=== PATIENT | male | born 1935 | race Caucasian/White ===

== ENCOUNTER 2019-12-19 09:20 | Inpatient (IN) | payer MEDICARE ==
[2019-12-19] MEDS ORDERED: MELATONIN 3 MG TABLET PO PRN (14:49)
[2019-12-19] MEDS ORDERED: NALOXONE 0.4 MG/ML 1 ML VIAL IV PRN (14:49)
[2019-12-19] MEDS ORDERED: ACETAMINOPHEN TAB 325 MG TAB PO PRN (14:49)
[2019-12-19] MEDS ORDERED: ONDANSETRON 4 MG/2 ML VIAL IVP PRN (14:49)
--- NOTE | 2019-12-19 15:06 | P.HPIM ---
History of Present Illness H&P Date: 12/19/19 Chief Complaint: Shortness of breath This is a 84-year-old male with complex past medical history noted below who was transferred from [facility] for further evaluation of multifocal Covid 19 pneumonia. Patient presented to an outside hospital 3 days ago with worsening shortness of breath and cough. He was evaluated in the ER and was found to have a right lung pneumonia. He was admitted to the hospital and was treated with ceftriaxone and azithromycin. His overall condition remained stable. Yesterday, his Covid 19 PCR test returned positive. Patient was monitored that his symptoms started to progress and he was requiring 2 L of oxygen. Repeat chest x-ray today showed worsening multi lobar infiltrate and patient was given 125 mg of IV Solu-Medrol and he was transferred to our hospital for escalation of care and possible need of Remdesivir. Patient was seen by me in his room. He was very lethargic when I saw him. He was not able to provide any significant history. He was hardly arousable but was oriented to himself and to the place. He told me that he is not short of breath at this time but was more short of breath this morning. He denies any cough at the moment. No fevers or chills. I reviewed his lab work from outside hospital was mostly within acceptable/normal range. Patient had a normal troponin, normal BNP, normal CPK, and normal electrolytes/CBC. His creatinine was 1.5. 12-lead EKG showed atrial fibrillation with slow ventricular response. Review of Systems Review of system: 14 points review of systems were obtained and were negative except to what were mentioned in the HPI. Past Medical History Past Medical History: Atrial Fibrillation History of Any Multi-Drug Resistant Organisms: None Reported Past Anesthesia/Blood Transfusion Reactions: No Reported Reaction Smoking Status: Former smoker Medications and Allergies Allergies Allergy/AdvReac Type Severity Reaction Status Date / Time naproxen [From Aleve] Allergy Unknown Verified 12/19/19 14:22 Physical Exam Vitals: Vital Signs Temp Pulse Resp BP Pulse Ox 12/19/19 14:36 98.1 F 80 20 115/68 96 Intake and Output 12/18/19 12/19/19 12/19/19 22:59 06:59 14:59 Other: Weight 87.5 kg General: The patient is awake and alert, in no distress Eye: there is normal conjunctiva bilaterally. Neck: The neck is supple, there is no JVD. Cardiovascular: Normal S1-S2, no S3-S4, no murmurs. Respiratory: Lungs clear to auscultation bilaterally Gastrointestinal: Abdomen is soft, nontender Musculoskeletal: There is no pedal edema. Neurological:. Speech is normal. Skin: Skin is warm and dry Assessment and Plan Assessment: 1. Covid 19 superimposed on bacterial pneumonia, with x-ray showing multifocal pneumonia: Sarabjit 19 PCR positive at outside hospital on 12/17. Continue antibiotic with ceftriaxone and azithromycin. Patient received IV Solu-Medrol 125 mg IV at outside hospital. I would continue with Decadron 6 mg daily. Repeat chest x-ray in the morning. Consult pulmonology and ID for further evaluation. 2. Acute hypoxic respiratory failure secondary to #1, currently on 2 L of oxy gen. We will continue to monitor. Maintain O2 sats greater than 90% 3. Chronic atrial fibrillation with slow ventricular response noted on 12-lead EKG at outside hospital. I would continue desktop support associate. 4. Essential hypertension: Blood pressure within acceptable range. At home, Patient is maintained on lisinopril 40 mg daily, Norvasc 5 mg daily, and hydralazine 25 mg twice a day. I would continue with lisinopril 20 mg daily for now and continue to monitor closely 5. Hypothyroidism on levothyroxin 6. Stage IIIB chronic kidney disease 7. DVT prophylaxis with subcu Lovenox 8. CODE STATUS: DO NOT RESUSCITATE/DO NOT INTUBATE: Discussed with his daughter who is his DURABLE POWER OF RN CLINICAL REVIEW by nursing staff The patient is admitted with an anticipated greater than 2 midnight stay for evaluation of the medical problems noted above Discussed with: Patient and nursing staff Anticipated discharge date: To be determined based on clinical course Anticipated discharge place: home A total of 45 minutes was spent on the care of this complex patient more than 50% of the time was spent in counseling and care coordination.
[2019-12-19] MEDS ORDERED: dexAMETHasone 2 MG TAB PO SCH (15:30)
[2019-12-19] MEDS: SODIUM CHLORIDE 0.9% 1,000 ML IV SCH (15:37)
[2019-12-19] MEDS: ENOXAPARIN 40 MG/0.4 ML SYRINGE SQ SCH (15:37)
[2019-12-19] MEDS: dexAMETHasone 4 MG TAB PO SCH (15:58)
[2019-12-19] MEDS: ALBUTEROL HFA INHALER INHALATION SCH ×2 (16:34→19:48)
[2019-12-19] MEDS: lisinopriL 20 MG TAB PO SCH (21:57)
[2019-12-20] MEDS: LEVOTHYROXINE 125 MCG TAB PO SCH (05:36)
[2019-12-20 06:47] LABS: Basophils % (A) 0 %; Eosinophils % (A) 0 %; HCT 29.7 % (39.0-53.0); HGB 9.6 gm/dL (13.0-17.5); Lymphocytes # (A) 0.4 k/uL (1.0-4.8); Lymphocytes % (A) 11 %; MCH 29.7 pg (25.0-35.0); MCHC 32.2 g/dL (31.0-37.0); MCV 92.4 fL (80.0-100.0); Mean Platelet Volume 8.2; Monocytes # (A) 0.3 k/uL (0-1.0); Monocytes % (A) 8 %; Neutrophils # (A) 2.9 k/uL (1.3-7.7); Neutrophils % (A) 80 %; Platelet Count 254 k/uL (150-450); RBC 3.21 m/uL (4.30-5.90); WBC 3.6 k/uL (3.8-10.6)
--- NOTE | 2019-12-20 07:17 | XR ---
EXAMINATION TYPE: XR chest 1V DATE OF EXAM: 12/20/2019 HISTORY: Shortness of breath. COMPARISON: None. TECHNIQUE: Single view of the chest is submitted. FINDINGS: Demonstrated are scattered senescent parenchymal change. Patchy right perihilar and basilar infiltrate. Mild increased density left lower lobe. Correlate for pneumonia. The heart is stable. Hilar and mediastinal structures are within normal limits. Degenerative changes are seen of the dorsal spine. IMPRESSION: 1. Patchy right perihilar and basilar infiltrate. Mild increased density left lower lobe. Correlate for pneumonia.
[2019-12-20] MEDS: ALBUTEROL HFA INHALER INHALATION SCH ×4 (08:12→19:03)
[2019-12-20] MEDS: lisinopriL 20 MG TAB PO SCH (08:29)
[2019-12-20] MEDS: dexAMETHasone 4 MG TAB PO SCH (08:29)
[2019-12-20] MEDS: AZITHROMYCIN 250 MG TAB PO SCH (08:29)
[2019-12-20] MEDS: ENOXAPARIN 40 MG/0.4 ML SYRINGE SQ SCH (08:29)
[2019-12-20] MEDS: FUROSEMIDE 40 MG TAB PO SCH (08:29)
[2019-12-20 09:55] LABS: African American GFR (CKD) 52.4 (60.0-200.0); Albumin 3.2 g/dL (3.80-4.90); Albumin/Globulin Ratio 1.39 (1.60-3.17); Anion Gap 11.1 mmol/L (4.00-12.00); BUN/Creat Ratio 29.29 Ratio (12.00-20.00); Calcium 8.5 mg/dL (8.7-10.3); Carbon Dioxide 25.9 mmol/L (21.6-31.8); Globulin 2.3 g/dL (1.6-3.3); Magnesium 1.6 mg/dL (1.5-2.4); Non-African American GFR(CKD) 45.2 (60.0-200.0); Potassium 3.8 mmol/L (3.5-5.5); Total Bilirubin 0.2 mg/dL (0.2-1.2); Total Protein 5.5 g/dL (6.2-8.2)
[2019-12-20] MEDS: SODIUM CHLORIDE 0.9% 1,000 ML IV SCH (11:35)
--- NOTE | 2019-12-20 11:49 | P.CNPUL ---
History of Present Illness Reason for consult: pneumonia History of present illness: 84-year-old male patient transferred from [facility] after being diagnosed with a coronavirus Covid 19 multifocal pneumonia. The patient is currently hypoxic on 2 L of oxygen by nasal cannula with a pulse ox of 94%. The patient presented to the outside hospital approximately 3 days ago. His symptoms started approximately 5-7 days ago when he started feeling weak and tired and congested and cough and progressively he was having more shortness of breath. He was being given antibiotics with accommodation Rocephin and Zithromax. Chest x-ray was showing diffuse breath and pulmonary infiltrates. The patient had also become bronchus spastic and wheezy. He has no previous history of lung disease per notes of COPD or asthma. Hemodynamically stable. He is currently afebrile with a temperature of 97 7. The inflammatory markers are still pending for now. LFTs are within normal. No nausea. No vomiting. No diarrhea. White cell count is at 3.6. The patient has lymphopenia with a lymphocyte count of 0.4. No altered mentation. It is at 1.62 and the patient is on a Lovenox dose of 40 mg subcu and the patient was started on Decadron 6 mg by mouth daily. Review of Systems Constitutional: Reports weakness Eyes: denies as per HPI, denies blurred vision, denies bulging eye, denies decreased vision, denies diplopia, denies discharge, denies dry eye, denies irritation, denies itching, denies pain, denies photophobia, denies loss of peripheral vision, denies loss of vision, denies tunnel vision/blind spots Ears: deny: decreased hearing, ear discharge, earache, tinnitus Ears, nose, mouth and throat: Reports as per HPI Breasts: absent: as per HPI, gynecomastia Cardiovascular: Reports dyspnea on exertion Respiratory: Reports cough, Reports dyspnea Gastrointestinal: Reports as per HPI Genitourinary: Reports as per HPI Musculoskeletal: Reports as per HPI Musculoskeletal: absent: ankle pain, ankle stiffness, ankle swelling, as per HPI, elbow pain, elbow stiffness, elbow swelling, foot pain, foot stiffness, foot swelling, hand pain, hand stiffness, hand swelling, hip pain, hip stiffness, hip swelling, knee pain, knee stiffness, knee swelling, shoulder pain, shoulder stiffness, shoulder swelling, wrist pain, wrist stiffness, wrist swelling Integumentary: Reports as per HPI Neurological: Reports as per HPI, Reports weakness Psychiatric: Reports as per HPI Endocrine: Reports as per HPI, Reports fatigue Hematologic/Lymphatic: Reports as per HPI Allergic/Immunologic: Reports as per HPI Past Medical History Past Medical History: Atrial Fibrillation, Hypertension, Thyroid Disorder History of Any Multi-Drug Resistant Organisms: None Reported Past Anesthesia/Blood Transfusion Reactions: No Reported Reaction Smoking Status: Former smoker Medications and Allergies Home Medications Medication Instructions Recorded Confirmed Type Cetirizine HCl 10 mg PO DAILY 12/19/19 12/19/19 History Cholecalciferol [Vitamin D3 (25 1,000 unit PO DAILY 12/19/19 12/19/19 History Mcg = 1000 Iu)] Furosemide [Lasix] 40 mg PO DAILY 12/19/19 12/19/19 History Levothyroxine Sodium 125 mcg PO DAILY@0600 12/19/19 12/19/19 History Potassium Chloride 10 meq PO DAILY 12/19/19 12/19/19 History Simvastatin [Zocor] 20 mg PO HS 12/19/19 12/19/19 History Vit C/E/Zn/Coppr/Lutein/Zeaxan 1 cap PO DAILY 12/19/19 12/19/19 History [Preservision Areds 2 Softgel] amLODIPine [Norvasc] 5 mg PO DAILY 12/19/19 12/19/19 History hydrALAZINE HCL [Apresoline] 25 mg PO DAILY 12/19/19 12/19/19 History lisinopriL 40 mg PO DAILY 12/19/19 12/19/19 History metOLazone [Zaroxolyn] 2.5 mg PO DAILY 12/19/19 12/19/19 History Allergies Allergy/AdvReac Type Severity Reaction Status Date / Time naproxen [From Aleve] Allergy Unknown Verified 12/19/19 18:02 Physical Exam Vitals: Vital Signs Temp Pulse Resp BP BP Pulse Ox 12/20/19 08:28 97.7 F 69 20 132/61 94 L 12/20/19 02:46 98.0 F 76 18 126/71 93 L 12/19/19 19:25 97.8 F 73 16 140/63 96 12/19/19 14:36 98.1 F 80 20 115/68 96 Intake and Output 12/19/19 12/20/1920 22:59 06:59 14:59 Intake Total 100 500 200 Output Total 975 Balance 100 -475 200 Intake: Intake, IV Titration 100 500 Amount Sodium Chloride 0.9% 1, 100 500 000 ml @ 50 mls/hr IV . Q20H [facility] Rx#:[id number] Oral 200 Output: Urine 975 Gen. appearance the patient's breathing is nonlabored and is calm and comfortable Head exam was generally normal. There was no scleral icterus or corneal arcus. Mucous membranes were moist. Neck was supple and without jugular venous distension, thyromegaly, or carotid bruits. Carotids were easily palpable bilaterally. There was no adenopathy. Lungs sounds are diminished and the patient is scattered rhonchi scattered expiratory wheezes throughout the lung his bilaterally Heart sounds are irregular consistent with atrial fibrillation. Normal S1-S2. No significant murmurs appreciated. Abdominal exam revealed normal bowel sounds. The abdomen was soft, non-tender, and without masses, organomegaly, or appreciable enlargement of the abdominal aorta. Examination of the extremities revealed easily palpable radial, femoral and pe jose elias pulses. There was no cyanosis, clubbing or edema. Examination of the skin revealed no evidence of significant rashes, suspicious appearing nevi or other concerning lesions. Neurologically, the patient is awake and alert and the patient does not have any focal neurological deficit. Cranial nerves are essentially intact. Results - Laboratory Findings CBC and BMP: 12/20/19 06:07 12/20/19 06:07 Abnormal lab findings: Abnormal Labs 12/20/19 12/20/19 06:07 06:07 WBC 3.6 L RBC 3.21 L Hgb 9.6 L Hct 29.7 L Lymphocytes # 0.4 L BUN 41.0 H Est GFR (CKD-EPI)AfAm 52.4 L Est GFR (CKD-EPI)NonAf 45.2 L BUN/Creatinine Ratio 29.29 H Calcium 8.5 L AST 36 H Total Protein 5.5 L Albumin 3.20 L Albumin/Globulin Ratio 1.39 L - Diagnostic Findings Chest x-ray: image reviewed Assessment and Plan Plan: 1 acute coronavirus Covid 19 pneumonia 2 acute hypoxic respiratory failure secondary to above and the patient had diffuse breath and pulmonary infiltrates and the patient is currently on 2 L of oxygen by nasal cannula 3 increased bronchospasm wheezing secondary to above 4 chronic atrial fibrillation 5 hypertension 6 hypothyroidism 7 chronic stage III kidney disease Plan Check inflammatory markers including ferritin obvious CRP Lovenox 40 mg subcu the patient's d-dimer is 1.6 Decadron 6 mg by mouth daily Start Remdesevir 200 mg today and 100 mg for the next 4 days Albuterol HFA 2 puffs 4 times a day May stop the Rocephin and Zithromax Gentle hydration Resume all medication Monitor oxygenation Rapid precautions Monitor renal function We'll continue to follow
[2019-12-20] MEDS ORDERED: REMDESIVIR (EUA) 200 MG in SODIUM CHLORIDE 0.9% 250 ML IVPB ONE (12:00)
--- NOTE | 2019-12-20 12:30 | P.PN ---
Subjective Progress Note Date: 12/20/19 Principal diagnosis: COVID-19 Patient is doing a lot better today. His mentation is significantly improved. He still requiring 2 L of oxygen. He reported some shortness of breath. Objective - Vital Signs Vital signs: Vital Signs Temp 97.7 F 12/20/19 08:28 Pulse 69 12/20/19 08:28 Resp 20 12/20/19 08:28 BP 132/61 12/20/19 08:28 Pulse Ox 94 L 12/20/19 08:28 Intake & Output 12/19/19 12/20/19 12/20/19 18:59 06:59 18:59 Intake Total 600 200 Output Total 975 Balance -375 200 Weight 87.5 kg Intake: Intake, IV Titration 600 Amount Sodium Chloride 0.9% 1, 600 000 ml @ 50 mls/hr IV . Q20H [facility] Rx#:[id number] Oral 200 Output: Urine 975 - Exam General: The patient is awake and alert, in no distress Eye: there is normal conjunctiva bilaterally. Neck: The neck is supple, there is no JVD. Cardiovascular: Normal S1-S2, no S3-S4, no murmurs. Respiratory: Lungs with diffuse rhonchi Gastrointestinal: Abdomen is soft, nontender Musculoskeletal: There is no pedal edema. Neurological:. Speech is normal. Skin: Skin is warm and dry - Labs CBC & Chem 7: 12/20/19 06:07 12/20/19 06:07 Labs: Abnormal Lab Results - Last 24 Hours (Table) 12/20/19 12/20/19 12/20/19 Range/Units 06:07 06:07 10:22 WBC 3.6 L (3.8-10.6) k/uL RBC 3.21 L (4.30-5.90) m/uL Hgb 9.6 L (13.0-17.5) gm/dL Hct 29.7 L (39.0-53.0) % Lymphocytes # 0.4 L (1.0-4.8) k/uL D-Dimer (<0.60) mg/L FEU BUN 41.0 H (9.0-27.0) mg/dL Est GFR (CKD-EPI)AfAm 52.4 L (60.0-200.0) Est GFR (CKD-EPI)NonAf 45.2 L (60.0-200.0) BUN/Creatinine Ratio 29.29 H (12.00-20.00) Ratio Calcium 8.5 L (8.7-10.3) mg/dL AST 36 H (14-35) U/L C-Reactive Protein 82.0 H (<10.0) mg/L Total Protein 5.5 L (6.2-8.2) g/dL Albumin 3.20 L (3.80-4.90) g/dL Albumin/Globulin Ratio 1.39 L (1.60-3.17) g/dL 12/20/19 Range/Units 10:22 WBC (3.8-10.6) k/uL RBC (4.30-5.90) m/uL Hgb (13.0-17.5) gm/dL Hct (39.0-53.0) % Lymphocytes # (1.0-4.8) k/uL D-Dimer 1.62 H (<0.60) mg/L FEU BUN (9.0-27.0) mg/dL Est GFR (CKD-EPI)AfAm (60.0-200.0) Est GFR (CKD-EPI)NonAf (60.0-200.0) BUN/Creatinine Ratio (12.00-20.00) Ratio Calcium (8.7-10.3) mg/dL AST (14-35) U/L C-Reactive Protein (<10.0) mg/L Total Protein (6.2-8.2) g/dL Albumin (3.80-4.90) g/dL Albumin/Globulin Ratio (1.60-3.17) g/dL Assessment and Plan Assessment: This is a 84-year-old male who was transferred to our hospital from [place] for further evaluation of his medical problems noted below. 1. Covid 19 superimposed on bacterial pneumonia, with x-ray showing multifocal pneumonia: Sarabjit 19 PCR positive at outside hospital on 12/17. Continue antibiotic with ceftriaxone and azithromycin. Tomorrow is day 5 and would discontinue antibiotic. Continue with Decadron 6 mg daily. Repeat chest x-ray showed stable patchy infiltrate bilaterally. Seen and evaluated by pulmonology, started on her visit here today 03/15. 2. Acute hypoxic respiratory failure secondary to #1, currently on 2 L of oxygen. We will continue to monitor. Maintain O2 sats greater than 90% 3. Chronic atrial fibrillation with slow ventricular response noted on 12-lead EKG at outside hospital. I would continue playground monitor. Patient is not maintained on anticoagulation as an outpatient 4. Essential hypertension: Blood pressure within acceptable range. At home, Patient is maintained on lisinopril 40 mg daily, Norvasc 5 mg daily, and h ydralazine 25 mg twice a day. I would continue with lisinopril 20 mg daily for now and continue to monitor closely 5. Hypothyroidism on levothyroxin 6. Stage IIIB chronic kidney disease 7. DVT prophylaxis with subcu Lovenox 8. CODE STATUS: DO NOT RESUSCITATE/DO NOT INTUBATE: Discussed with his daughter who is his DURABLE POWER OF TALCER by nursing staff T
[2019-12-20 17:06] LABS: Ferritin 314.2 ng/mL (22.0-322.0)
--- NOTE | 2019-12-20 22:25 | P.CONS ---
History of Present Illness - Reason for Consult Consult date: 12/20/19 pneumonia Requesting physician: Karthikeyan Townsend - Chief Complaint Shortness of breath and cough x few days - History of Present Illness Patient is 84 year old male presented to the [facility] a few days ago for increasing shortness of breath and cough in this patient who was diagnosed with pneumonia the patient was treated with Rocephin and Zithromax subsequently the covid 19 PCR came back positive for apparently the patient did have a chest x-ray we did shows worsening Saturday-lobar infiltrate patient was subsequently transferred to [facility] for further management of his Covid 19 pneumonia on presentation this facility the patient has been afebrile patient was hypoxic on supplemental oxygen he did have a normal white count with lymphopenia elevated d-dimer and CRP, chest x-ray with patchy right perihilar and basilar infiltrate patient has been evaluated by pulmonary service the patient was started on Remdisivir infectious disease was consulted for further management at the time of evaluation the patient's any more awake and alert in his hospital she did have supplemental oxygen on the patient did have a cough which is [id number] intensity B Cabrini sputum denies having any chest pain no nausea no vomiting no abdominal pain no diarrhea Review of Systems Positive point has been mentioned in the HPI rest of the systems are negative Past Medical History Past Medical History: Atrial Fibrillation, Hypertension, Thyroid Disorder History of Any Multi-Drug Resistant Organisms: None Reported Past Anesthesia/Blood Transfusion Reactions: No Reported Reaction Smoking Status: Former smoker Medications and Allergies Home Medications Medication Instructions Recorded Confirmed Type Cetirizine HCl 10 mg PO DAILY 12/19/19 12/19/19 History Cholecalciferol [Vitamin D3 (25 1,000 unit PO DAILY 12/19/19 12/19/19 History Mcg = 1000 Iu)] Furosemide [Lasix] 40 mg PO DAILY 12/19/19 12/19/19 History Levothyroxine Sodium 125 mcg PO DAILY@0600 12/19/19 12/19/19 History Potassium Chloride 10 meq PO DAILY 12/19/19 12/19/19 History Simvastatin [Zocor] 20 mg PO HS 12/19/19 12/19/19 History Vit C/E/Zn/Coppr/Lutein/Zeaxan 1 cap PO DAILY 12/19/19 12/19/19 History [Preservision Areds 2 Softgel] amLODIPine [Norvasc] 5 mg PO DAILY 12/19/19 12/19/19 History hydrALAZINE HCL [Apresoline] 25 mg PO DAILY 12/19/19 12/19/19 History lisinopriL 40 mg PO DAILY 12/19/19 12/19/19 History metOLazone [Zaroxolyn] 2.5 mg PO DAILY 12/19/19 12/19/19 History Allergies Allergy/AdvReac Type Severity Reaction Status Date / Time naproxen [From Aleve] Allergy Unknown Verified 12/19/19 18:02 Physical Exam Vitals: Vital Signs Temp Pulse Resp BP BP Pulse Ox 12/20/19 08:28 97.7 F 69 20 132/61 94 L 12/20/19 02:46 98.0 F 76 18 126/71 93 L 12/19/19 19:25 97.8 F 73 16 140/63 96 12/19/19 14:36 98.1 F 80 20 115/68 96 Intake and Output 12/19/19 12/20/19 12/20/19 22:59 06:59 14:59 Intake Total 100 500 200 Output Total 975 Balance 100 -475 200 Intake: Intake, IV Titration 100 500 Amount Sodium Chloride 0.9% 1, 100 500 000 ml @ 50 mls/hr IV . Q20H [facility] Rx#:[id number] Oral 200 Output: Urine 975 GENERAL DESCRIPTION: an elderly male lying in bed, no distress. No tachypnea or accessory muscle of respiration use. HEENT: Shows Pallor , no scleral icterus. Oral mucous membrane is dry. No pharyngeal erythema or thrush NECK: Trachea central, no thyromegaly. LUNGS: Unlabored breathing. course breath sounds at the Base. No wheeze or crackle. HEART: S1, S2, regular rate and rhythm. No loud murmur ABDOMEN: Soft, no tenderness , guarding or rigidity, no organomegaly EXTREMITIES: No edema of feet. SKIN: No rash, no masses palpable. NEUROLOGICAL: The patient is awake, alert, oriented x2, mood and affect normal. Results CBC & Chem 7: 12/20/19 06:07 12/20/19 06:07 Labs: Abnormal Lab Results - Last 24 Hours (Table) 12/20/19 12/20/19 12/20/19 Range/Units 06:07 06:07 10:22 WBC 3.6 L (3.8-10.6) k/uL RBC 3.21 L (4.30-5.90) m/uL Hgb 9.6 L (13.0-17.5) gm/dL Hct 29.7 L (39.0-53.0) % Lymphocytes # 0.4 L (1.0-4.8) k/uL D-Dimer (<0.60) mg/L FEU BUN 41.0 H (9.0-27.0) mg/dL Est GFR (CKD-EPI)AfAm 52.4 L (60.0-200.0) Est GFR (CKD-EPI)NonAf 45.2 L (60.0-200.0) BUN/Creatinine Ratio 29.29 H (12.00-20.00) Ratio Calcium 8.5 L (8.7-10.3) mg/dL AST 36 H (14-35) U/L C-Reactive Protein 82.0 H (<10.0) mg/L Total Protein 5.5 L (6.2-8.2) g/dL Albumin 3.20 L (3.80-4.90) g/dL Albumin/Globulin Ratio 1.39 L (1.60-3.17) g/dL 12/20/19 Range/Units 10:22 WBC (3.8-10.6) k/uL RBC (4.30-5.90) m/uL Hgb (13.0-17.5) gm/dL Hct (39.0-53.0) % Lymphocytes # (1.0-4.8) k/uL D-Dimer 1.62 H (<0.60) mg/L FEU BUN (9.0-27.0) mg/dL Est GFR (CKD-EPI)AfAm (60.0-200.0) Est GFR (CKD-EPI)NonAf (60.0-200.0) BUN/Creatinine Ratio (12.00-20.00) Ratio Calcium (8.7-10.3) mg/dL AST (14-35) U/L C-Reactive Protein (<10.0) mg/L Total Protein (6.2-8.2) g/dL Albumin (3.80-4.90) g/dL Albumin/Globulin Ratio (1.60-3.17) g/dL Assessment and Plan Assessment: 1- patient presented to hospital with increasing shortness of breath and cough in this patient has been diagnosed with multifocal pneumonia this patient did have a evidence of lymphopenia elevated d-dimer in his CRP and multifocal infiltrate on the chest x-ray likely representing acute viral pneumonia secondary to covid19 clinical suspicion of underlying bacterial infection (1) Pneumonia due to COVID-19 virus Current Visit: Yes Status: Acute Code(s): U07.1 - COVID-19; J12.89 - OTHER VIRAL PNEUMONIA SNOMED Code(s): [id number] Plan: 1- patient will be treated with Remdisivir , Lovenox , dexamethasone and zinc 2- we will check a pro-calcitonin if normal antibiotic should be discontinued 3- droplet isolation and respiratory support We will follow on clinical condition and cultures to further adjust medication if needed Thank you for this consultation will follow this patient with you
[2019-12-21] MEDS: LEVOTHYROXINE 125 MCG TAB PO SCH (06:11)
[2019-12-21 06:15] LABS: Basophils % (A) 0 %; Eosinophils % (A) 0 %; HCT 31.4 % (39.0-53.0); HGB 10.1 gm/dL (13.0-17.5); Lymphocytes # (A) 0.3 k/uL (1.0-4.8); Lymphocytes % (A) 4 %; MCH 30.2 pg (25.0-35.0); MCHC 32.1 g/dL (31.0-37.0); MCV 94.2 fL (80.0-100.0); Mean Platelet Volume 8.1; Monocytes # (A) 0.5 k/uL (0-1.0); Monocytes % (A) 5 %; Neutrophils # (A) 7.9 k/uL (1.3-7.7); Neutrophils % (A) 90 %; Platelet Count 286 k/uL (150-450); RBC 3.34 m/uL (4.30-5.90); RDW 14.7 % (11.5-15.5); WBC 8.8 k/uL (3.8-10.6)
[2019-12-21] MEDS: SODIUM CHLORIDE 0.9% 1,000 ML IV SCH (07:39)
[2019-12-21] MEDS: FUROSEMIDE 40 MG TAB PO SCH (07:40)
[2019-12-21] MEDS: AZITHROMYCIN 250 MG TAB PO SCH (07:40)
[2019-12-21] MEDS: dexAMETHasone 4 MG TAB PO SCH (07:40)
[2019-12-21] MEDS: ENOXAPARIN 40 MG/0.4 ML SYRINGE SQ SCH (07:40)
[2019-12-21] MEDS: lisinopriL 20 MG TAB PO SCH (07:40)
[2019-12-21] MEDS: ALBUTEROL HFA INHALER INHALATION SCH ×4 (07:59→21:12)
[2019-12-21 10:55] LABS: African American GFR (CKD) 48.2 (60.0-200.0); Albumin 3.4 g/dL (3.80-4.90); Albumin/Globulin Ratio 1.48 (1.60-3.17); Anion Gap 11.2 mmol/L (4.00-12.00); BUN/Creat Ratio 35.33 Ratio (12.00-20.00); C Reactive Protein 5.5 mg/dL (0.0-0.8); Calcium 8.5 mg/dL (8.7-10.3); Carbon Dioxide 22.8 mmol/L (21.6-31.8); Globulin 2.3 g/dL (1.6-3.3); Non-African American GFR(CKD) 41.6 (60.0-200.0); Potassium 3.9 mmol/L (3.5-5.5); Total Bilirubin 0.2 mg/dL (0.2-1.2); Total Protein 5.7 g/dL (6.2-8.2)
[2019-12-21 12:52] LABS: C Reactive Protein 55.6 mg/L (<10.0)
[2019-12-21] MEDS: REMDESIVIR (EUA) 100 MG in SODIUM CHLORIDE 0.9% 250 ML IVPB SCH (13:06)
--- NOTE | 2019-12-21 13:27 | P.PN ---
Subjective Progress Note Date: 12/21/19 Principal diagnosis: COVID 19 pneumonitis 84-year-old male patient transferred from [facility] after being diagnosed with a coronavirus Covid 19 multifocal pneumonia. The patient is currently hypoxic on 2 L of oxygen by nasal cannula with a pulse ox of 94%. The patient presented to the outside hospital approximately 3 days ago. His symptoms started approximately 5-7 days ago when he started feeling weak and tired and congested and cough and progressively he was having more shortness of breath. He was being given antibiotics with accommodation Rocephin and Zi thromax. Chest x-ray was showing diffuse breath and pulmonary infiltrates. The patient had also become bronchus spastic and wheezy. He has no previous history of lung disease per notes of COPD or asthma. Hemodynamically stable. He is currently afebrile with a temperature of 97 7. The inflammatory markers are still pending for now. LFTs are within normal. No nausea. No vomiting. No diarrhea. White cell count is at 3.6. The patient has lymphopenia with a lymphocyte count of 0.4. No altered mentation. It is at 1.62 and the patient is on a Lovenox dose of 40 mg subcu and the patient was started on Decadron 6 mg by mouth daily. On 12/21/2019 patient seen in follow-up on a general medical surgical floor. He is resting in bed, he looks weak and worn out, he is on 2 L of oxygen with a pulse ox of 93%, he does have a loose nonproductive cough, sounds wheezy and today's exam, he continues on oral Decadron, azithromycin and Rocephin, and today's is second dose of Remdesivir. He is on daily dose of oral Lasix, he is on prophylactic dose of Lovenox. Denies any nausea or vomiting, today d-dimer is 1.18. CRP is 55.6, and LDH is 612. Objective - Vital Signs Vital signs: Vital Signs Temp 99.0 F 12/21/19 07:00 Pulse 77 12/21/19 07:00 Resp 18 12/21/19 07:00 BP 149/71 12/21/19 07:00 Pulse Ox 93 L 12/21/19 07:00 Intake & Output 12/20/19 12/21/19 12/21/19 18:59 06:59 18:59 Intake Total 600 Output Total 1 1100 Balance 599 -1100 Intake: IV 400 cefTRIAXone 1 gm In 400 Sodium Chloride 0.9% 50 ml @ 100 mls/hr IVPB Q24HR [facility] Rx#:[id number] Oral 200 Output: Urine 1100 Stool 1 Other: Voiding Method Incontinent # Bowel Movements 3 - Exam GENERAL EXAM: Alert, very pleasant, 84-year-old white male, on 2 L of oxygen and the pulse ox of 93-95% comfortable in no apparent distress. HEAD: Normocephalic/atraumatic. EYES: Normal reaction of pupils, equal size. Conjunctiva pink, sclera white. NOSE: Clear with pink turbinates. THROAT: No erythema or exudates. NECK: No masses, no JVD, no thyroid enlargement, no adenopathy. CHEST: No chest wall deformity. Symmetrical expansion. LUNGS: Equal air entry with no crackles, wheeze, rhonchi or dullness. CVS: Regular rate and rhythm, normal S1 and S2, no gallops, no murmurs, no rubs ABDOMEN: Soft, nontender. No hepatosplenomegaly, normal bowel sounds, no guarding or rigidity. EXTREMITIES: No clubbing, no edema, no cyanosis, 2+ pulses and upper and lower extremities. MUSCULOSKELETAL: Muscle strength and tone normal. SPINE: No scoliosis or deformity SKIN: No rashes CENTRAL NERVOUS SYSTEM: Alert and oriented -3. No focal deficits, tone is normal in all 4 extremities. PSYCHIATRIC: Alert and oriented -3. Appropriate affect. Intact judgment and insight. - Labs CBC & Chem 7: 12/21/19 05:43 12/21/19 05:43 Labs: Abnormal Lab Results - Last 24 Hours (Table) 12/21/19 12/21/19 12/21/19 Range/Units 05:43 05:43 05:43 RBC 3.34 L (4.30-5.90) m/uL Hgb 10.1 L (13.0-17.5) gm/dL Hct 31.4 L (39.0-53.0) % Neutrophils # 7.9 H (1.3-7.7) k/uL Lymphocytes # 0.3 L (1.0-4.8) k/uL D-Dimer (<0.60) mg/L FEU BUN 53.0 H (9.0-27.0) mg/dL Est GFR (CKD-EPI)AfAm 48.2 L (60.0-200.0) Est GFR (CKD-EPI)NonAf 41.6 L (60.0-200.0) BUN/Creatinine Ratio 35.33 H (12.00-20.00) Ratio Calcium 8.5 L (8.7-10.3) mg/dL AST 42 H (14-35) U/L C-Reactive Protein 5.5 H (0.0-0.8) mg/dL Total Protein 5.7 L (6.2-8.2) g/dL Albumin 3.40 L (3.80-4.90) g/dL Albumin/Globulin Ratio 1.48 L (1.60-3.17) g/dL Procalcitonin 0.13 H (0.02-0.09) ng/mL 12/21/19 12/21/19 Range/Units 12:19 12:19 RBC (4.30-5.90) m/uL Hgb (13.0-17.5) gm/dL Hct (39.0-53.0) % Neutrophils # (1.3-7.7) k/uL Lymphocytes # (1.0-4.8) k/uL D-Dimer 1.18 H (<0.60) mg/L FEU BUN (9.0-27.0) mg/dL Est GFR (CKD-EPI)AfAm (60.0-200.0) Est GFR (CKD-EPI)NonAf (60.0-200.0) BUN/Creatinine Ratio (12.00-20.00) Ratio Calcium (8.7-10.3) mg/dL AST (14-35) U/L C-Reactive Protein 55.6 H (0.0-0.8) mg/dL Total Protein (6.2-8.2) g/dL Albumin (3.80-4.90) g/dL Albumin/Globulin Ratio (1.60-3.17) g/dL Procalcitonin (0.02-0.09) ng/mL Assessment and Plan Plan: Assessment: 1 acute coronavirus Covid 19 pneumonia, initiated on Remdesivir on 12/20/2019 2 acute hypoxic respiratory failure secondary to above and the patient had diffuse breath and pulmonary infiltrates and the patient is currently on 2 L of oxygen by nasal cannula 3 increased bronchospasm wheezing secondary to above 4 chronic atrial fibrillation 5 hypertension 6 hypothyroidism 7 chronic stage III kidney disease Plan: Continue with current medical treatment, continue with oral Decadron, Lovenox, today is his second day of Remdesivir, continue gentle hydration, will continue following inflammatory markers. Continue monitoring dyspnea and oxygenation. I performed a history & physical examination of the patient and discussed their management with my nurse practitioner, Sunshine Freitas. I reviewed the nurse practitioner's note and agree with the documented findings and plan of care. Lung sounds are positive for diffuse wheezes. The findings and the impression was discussed with the patient. I attest to the documentation by the nurse practitioner. Time with Patient: Less than 30
--- NOTE | 2019-12-21 17:08 | P.PN ---
Subjective Progress Note Date: 12/21/19 Principal diagnosis: COVID-19 Patient is doing well today. He is still on oxygen. He said that his shortness of breath is not completely resolved. He appeared very weak Objective - Vital Signs Vital signs: Vital Signs Temp 98.2 F 12/21/19 14:28 Pulse 94 12/21/19 14:28 Resp 18 12/21/19 14:28 BP 136/54 12/21/19 14:28 Pulse Ox 91 L 12/21/19 14:28 Intake & Output 12/20/19 12/21/19 12/21/19 18:59 06:59 18:59 Intake Total 600 Output Total 1 1100 Balance 599 -1100 Intake: IV 400 cefTRIAXone 1 gm In 400 Sodium Chloride 0.9% 50 ml @ 100 mls/hr IVPB Q24HR [facility] Rx#:[id number] Oral 200 Output: Urine 1100 Stool 1 Other: Voiding Method Incontinent # Bowel Movements 3 3 - Exam General: The patient is awake and alert, in no distress Eye: there is normal conjunctiva bilaterally. Neck: The neck is supple, there is no JVD. Cardiovascular: Normal S1-S2, no S3-S4, no murmurs. Respiratory: Lungs with diffuse rhonchi and wheezing Gastrointestinal: Abdomen is soft, nontender Musculoskeletal: There is no pedal edema. Neurological:. Speech is normal. Skin: Skin is warm and dry - Labs CBC & Chem 7: 12/21/19 05:43 12/21/19 05:43 Labs: Abnormal Lab Results - Last 24 Hours (Table) 12/21/19 12/21/19 12/21/19 Range/Units 05:43 05:43 05:43 RBC 3.34 L (4.30-5.90) m/uL Hgb 10.1 L (13.0-17.5) gm/dL Hct 31.4 L (39.0-53.0) % Neutrophils # 7.9 H (1.3-7.7) k/uL Lymphocytes # 0.3 L (1.0-4.8) k/uL D-Dimer (<0.60) mg/L FEU BUN 53.0 H (9.0-27.0) mg/dL Est GFR (CKD-EPI)AfAm 48.2 L (60.0-200.0) Est GFR (CKD-EPI)NonAf 41.6 L (60.0-200.0) BUN/Creatinine Ratio 35.33 H (12.00-20.00) Ratio Calcium 8.5 L (8.7-10.3) mg/dL AST 42 H (14-35) U/L C-Reactive Protein 5.5 H (0.0-0.8) mg/dL Total Protein 5.7 L (6.2-8.2) g/dL Albumin 3.40 L (3.80-4.90) g/dL Albumin/Globulin Ratio 1.48 L (1.60-3.17) g/dL Procalcitonin 0.13 H (0.02-0.09) ng/mL 12/21/19 12/21/19 Range/Units 12:19 12:19 RBC (4.30-5.90) m/uL Hgb (13.0-17.5) gm/dL Hct (39.0-53.0) % Neutrophils # (1.3-7.7) k/uL Lymphocytes # (1.0-4.8) k/uL D-Dimer 1.18 H (<0.60) mg/L FEU BUN (9.0-27.0) mg/dL Est GFR (CKD-EPI)AfAm (60.0-200.0) Est GFR (CKD-EPI)NonAf (60.0-200.0) BUN/Creatinine Ratio (12.00-20.00) Ratio Calcium (8.7-10.3) mg/dL AST (14-35) U/L C-Reactive Protein 55.6 H (0.0-0.8) mg/dL Total Protein (6.2-8.2) g/dL Albumin (3.80-4.90) g/dL Albumin/Globulin Ratio (1.60-3.17) g/dL Procalcitonin (0.02-0.09) ng/mL Assessment and Plan Assessment: This is a 84-year-old male who was transferred to our hospital from [place] for further evaluation of his medical problems noted below. 1. Covid 19 superimposed on bacterial pneumonia, with x-ray showing multifocal pneumonia: Sarabjit 19 PCR positive at outside hospital on 12/17. Continue antibiotic with ceftriaxone and azithromycin day #5. Continue with Decadron 6 mg daily. Repeat chest x-ray showed stable patchy infiltrate bilaterally. Seen and evaluated by pulmonology, started on Remdesivir day 2/5. 2. Acute hypoxic respiratory failure secondary to #1, currently on 2 L of oxygen. We will continue to monitor. Maintain O2 sats greater than 90% 3. Chronic atrial fibrillation with slow ventricular response noted on 12-lead EKG at outside hospital. I would continue manager monitoring. Patient is not maintained on anticoagulation as an outpatient 4. Essential hypertension: Blood pressure within acceptable range. At home, Patient is maintained on lisinopril 40 mg daily, Norvasc 5 mg daily, and hydralazine 25 mg twice a day. I would continue with lisinopril 20 mg daily for now and continue to monitor closely. We will probably need to adjust home regimen upon discharge 5. Hypothyroidism on levothyroxin 6. Stage IIIB chronic kidney disease 7. DVT prophylaxis with subcu Lovenox 8. CODE STATUS: DO NOT RESUSCITATE/DO NOT INTUBATE: Discussed with his daughter who is his DURABLE POWER OF DIRECTOR FINANCIAL PLANNING by nursing staff 9. Physical debility, PT/OT consulted. Plan to [facility] for subacute rehab on discharge. Discussed with case management.
--- NOTE | 2019-12-22 02:14 | PN ---
PROGRESS NOTE DATE OF SERVICE: 12/21/2019 REASON FOR FOLLOWUP: Acute COVID-19 pneumonia. INTERVAL HISTORY: The patient is currently afebrile. The patient is breathing slightly comfortably. Continues to have a cough, occasional sputum. No chest pain. No abdominal pain or diarrhea. PHYSICAL EXAMINATION: Blood pressure 135/70 with a pulse of 61, temperature 96.7. He is 94% 2 L nasal cannula. General description is an elderly male lying in bed in no distress. RESPIRATORY SYSTEM: Unlabored breathing, some coarse breath sounds at bases. No wheeze. HEART: S1, S2. Regular rate and rhythm. ABDOMEN: Soft, no tenderness. LABS: Hemoglobin is 10.1, white count 8.8. BUN of 53, creatinine 1.5. CRP is 55.6. DIAGNOSTIC IMPRESSION AND PLAN: 1. Patient with acute COVID-19 pneumonia for which the patient is currently covered with the remdesivir, Lovenox, and dexamethasone to continue. 2. Elevated procalcitonin and concern for possible bacterial pneumonia covered with Rocephin and Zithromax to be continued and will monitor clinical course closely. MMODL / IJN: [id number] /
[2019-12-22] MEDS: LEVOTHYROXINE 125 MCG TAB PO SCH (05:32)
[2019-12-22 06:29] LABS: Basophils % (A) 0 %; Eosinophils % (A) 0 %; HCT 31.2 % (39.0-53.0); HGB 10.3 gm/dL (13.0-17.5); Lymphocytes # (A) 0.4 k/uL (1.0-4.8); Lymphocytes % (A) 10 %; MCH 31.1 pg (25.0-35.0); MCHC 33.1 g/dL (31.0-37.0); MCV 94.1 fL (80.0-100.0); Mean Platelet Volume 8.1; Monocytes # (A) 0.4 k/uL (0-1.0); Monocytes % (A) 9 %; Neutrophils # (A) 3.3 k/uL (1.3-7.7); Neutrophils % (A) 78 %; Platelet Count 268 k/uL (150-450); RBC 3.32 m/uL (4.30-5.90); RDW 14.6 % (11.5-15.5); WBC 4.2 k/uL (3.8-10.6)
[2019-12-22] MEDS: ENOXAPARIN 40 MG/0.4 ML SYRINGE SQ SCH (08:20)
[2019-12-22] MEDS: dexAMETHasone 4 MG TAB PO SCH (08:21)
[2019-12-22] MEDS: AZITHROMYCIN 250 MG TAB PO SCH (08:21)
[2019-12-22] MEDS: lisinopriL 20 MG TAB PO SCH (08:21)
[2019-12-22] MEDS: FUROSEMIDE 40 MG TAB PO SCH (08:21)
[2019-12-22] MEDS: ALBUTEROL HFA INHALER INHALATION SCH ×4 (09:00→20:11)
[2019-12-22 09:25] LABS: African American GFR (CKD) 52.4 (60.0-200.0); Anion Gap 10.5 mmol/L (4.00-12.00); BUN/Creat Ratio 39.29 Ratio (12.00-20.00); C Reactive Protein 4.7 mg/dL (0.0-0.8); Calcium 8.5 mg/dL (8.7-10.3); Carbon Dioxide 24.5 mmol/L (21.6-31.8); Non-African American GFR(CKD) 45.2 (60.0-200.0)
[2019-12-22] MEDS: REMDESIVIR (EUA) 100 MG in SODIUM CHLORIDE 0.9% 250 ML IVPB SCH (12:11)
--- NOTE | 2019-12-22 12:31 | P.PN ---
Subjective Progress Note Date: 12/22/19 Principal diagnosis: COVID 19 pneumonitis 84-year-old male patient transferred from [facility] after being diagnosed with a coronavirus Covid 19 multifocal pneumonia. The patient is currently hypoxic on 2 L of oxygen by nasal cannula with a pulse ox of 94%. The patient presented to the outside hospital approximately 3 days ago. His symptoms started approximately 5-7 days ago when he started feeling weak and tired and congested and cough and progressively he was having more shortness of breath. He was being given antibiotics with accommodation Rocephin and Zi thromax. Chest x-ray was showing diffuse breath and pulmonary infiltrates. The patient had also become bronchus spastic and wheezy. He has no previous history of lung disease per notes of COPD or asthma. Hemodynamically stable. He is currently afebrile with a temperature of 97 7. The inflammatory markers are still pending for now. LFTs are within normal. No nausea. No vomiting. No diarrhea. White cell count is at 3.6. The patient has lymphopenia with a lymphocyte count of 0.4. No altered mentation. It is at 1.62 and the patient is on a Lovenox dose of 40 mg subcu and the patient was started on Decadron 6 mg by mouth daily. On 12/21/2019 patient seen in follow-up on a general medical surgical floor. He is resting in bed, he looks weak and worn out, he is on 2 L of oxygen with a pulse ox of 93%, he does have a loose nonproductive cough, sounds wheezy and today's exam, he continues on oral Decadron, azithromycin and Rocephin, and today's is second dose of Remdesivir. He is on daily dose of oral Lasix, he is on prophylactic dose of Lovenox. Denies any nausea or vomiting, today d-dimer is 1.18. CRP is 55.6, and LDH is 612. On 12/22/2019 patient seen in follow-up on the general medical surgical floor. He is awake and alert, appears to be in no acute distress, he is resting in bed,he is currently afebrile, his breathing has improved, breathing comfortably, occasional cough, occasional sputum production, no compressive chest pain, no nausea vomiting or diarrhea. Patient continues on Remdesivir, oral Decadron, Lovenox, and he is on a combination of Rocephin and azithromycin. Objective - Vital Signs Vital signs: Vital Signs Temp 98.2 F 12/22/19 07:00 Pulse 62 12/22/19 07:00 Resp 18 12/22/19 07:00 BP 111/49 12/22/19 07:00 Pulse Ox 94 L 12/22/19 07:00 Intake & Output 12/21/19 12/22/19 12/22/19 18:59 06:59 18:59 Intake Total 350 Output Total 1001 Balance -651 Intake: Intake, IV Titration 150 Amount Sodium Chloride 0.9% 1, 150 000 ml @ 50 mls/hr IV . Q20H [facility] Rx#:[id number] Oral 200 Output: Urine 1000 Stool 1 Other: Voiding Method Incontinent Incontinent # Bowel Movements 3 1 - Exam GENERAL EXAM: Alert, very pleasant, 84-year-old white male, on 2 L of oxygen and the pulse ox of 93-95% comfortable in no apparent distress. HEAD: Normocephalic/atraumatic. EYES: Normal reaction of pupils, equal size. Conjunctiva pink, sclera white. NOSE: Clear with pink turbinates. THROAT: No erythema or exudates. NECK: No masses, no JVD, no thyroid enlargement, no adenopathy. CHEST: No chest wall deformity. Symmetrical expansion. LUNGS: Equal air entry with no crackles, wheeze, rhonchi or dullness. CVS: Regular rate and rhythm, normal S1 and S2, no gallops, no murmurs, no rubs ABDOMEN: Soft, nontender. No hepatosplenomegaly, normal bowel sounds, no guarding or rigidity. EXTREMITIES: No clubbing, no edema, no cyanosis, 2+ pulses and upper and lower extremities. MUSCULOSKELETAL: Muscle strength and tone normal. SPINE: No scoliosis or deformity SKIN: No rashes CENTRAL NERVOUS SYSTEM: Alert and oriented -3. No focal deficits, tone is normal in all 4 extremities. PSYCHIATRIC: Alert and oriented -3. Appropriate affect. Intact judgment and insight. - Labs CBC & Chem 7: 12/22/19 05:55 12/22/19 05:55 Labs: Abnormal Lab Results - Last 24 Hours (Table) 12/21/19 12/21/19 12/22/19 Range/Units 12:19 12:19 05:55 RBC 3.32 L (4.30-5.90) m/uL Hgb 10.3 L (13.0-17.5) gm/dL Hct 31.2 L (39.0-53.0) % Lymphocytes # 0.4 L (1.0-4.8) k/uL D-Dimer 1.18 H (<0.60) mg/L FEU BUN (9.0-27.0) mg/dL Est GFR (CKD-EPI)AfAm (60.0-200.0) Est GFR (CKD-EPI)NonAf (60.0-200.0) BUN/Creatinine Ratio (12.00-20.00) Ratio Calcium (8.7-10.3) mg/dL C-Reactive Protein 55.6 H (<10.0) mg/L 12/22/19 Range/Units 05:55 RBC (4.30-5.90) m/uL Hgb (13.0-17.5) gm/dL Hct (39.0-53.0) % Lymphocytes # (1.0-4.8) k/uL D-Dimer (<0.60) mg/L FEU BUN 55.0 H (9.0-27.0) mg/dL Est GFR (CKD-EPI)AfAm 52.4 L (60.0-200.0) Est GFR (CKD-EPI)NonAf 45.2 L (60.0-200.0) BUN/Creatinine Ratio 39.29 H (12.00-20.00) Ratio Calcium 8.5 L (8.7-10.3) mg/dL C-Reactive Protein 4.7 H (<10.0) mg/L Assessment and Plan Plan: Assessment: 1 acute coronavirus Covid 19 pneumonia, initiated on Remdesivir on 12/20/2019 2 acute hypoxic respiratory failure secondary to above and the patient had diffuse breath and pulmonary infiltrates and the patient is currently on 2 L of oxygen by nasal cannula 3 increased bronchospasm wheezing secondary to above 4 chronic atrial fibrillation 5 hypertension 6 hypothyroidism 7 chronic stage III kidney disease Plan: we'll continue with the same medical treatment, Remdesivir, empiric antibiotics, Lovenox, Decadron. Patient is breathing easier today, no nausea or vomiting, patient is afebrile. Continue following inflammatory markers, and continue monitoring febrile pattern, dyspnea and oxygenation requirement. We'll follow I performed a history & physical examination of the patient and discussed their management with my nurse practitioner, Sunshine Freitas. I reviewed the nurse practitioner's note and agree with the documented findings and plan of care. Lung sounds are positive for diffuse wheezes. The findings and the impression was discussed with the patient. I attest to the documentation by the nurse practitioner. Time with Patient: Less than 30
--- NOTE | 2019-12-22 13:38 | P.PN ---
Subjective Progress Note Date: 12/22/19 Principal diagnosis: COVID 19 Pneumonia CC: shortness of breath Patient states that his shortness of breath is better today. Patient states that he still has a cough. He denies any fever or chills. Patient has been afebrile in the last 24 hours. last night patient had a pause of 2.[address] monitor[address] Cardiology consult has been placed Objective - Vital Signs Vital signs: Vital Signs Temp 98.2 F 12/22/19 07:00 Pulse 62 12/22/19 07:00 Resp 18 12/22/19 07:00 BP 111/49 12/22/19 07:00 Pulse Ox 94 L 12/22/19 07:00 Intake & Output 12/21/19 12/22/19 12/22/19 18:59 06:59 18:59 Intake Total 350 Output Total 1001 Balance -651 Intake: Intake, IV Titration 150 Amount Sodium Chloride 0.9% 1, 150 000 ml @ 50 mls/hr IV . Q20H [facility] Rx#:[id number] Oral 200 Output: Urine 1000 Stool 1 Other: Voiding Method Incontinent Incontinent # Bowel Movements 3 1 - Exam General examination - Alert and Oriented 3 in NAD Heart - + S1S2 no murmurs Lungs - diffuse rhonchi Abdomen soft NT ND +ve BS Extremities - No edema GROCERY SUPERVISOR - Moving all 4 extremities spontaneously Psych - Calm and cooperative - Labs CBC & Chem 7: 12/22/19 05:55 12/22/19 05:55 Labs: Abnormal Lab Results - Last 24 Hours (Table) 12/22/19 12/22/19 12/22/19 Range/Units 05:55 05:55 12:46 RBC 3.32 L (4.30-5.90) m/uL Hgb 10.3 L (13.0-17.5) gm/dL Hct 31.2 L (39.0-53.0) % Lymphocytes # 0.4 L (1.0-4.8) k/uL D-Dimer 1.56 H (<0.60) mg/L FEU BUN 55.0 H (9.0-27.0) mg/dL Est GFR (CKD-EPI)AfAm 52.4 L (60.0-200.0) Est GFR (CKD-EPI)NonAf 45.2 L (60.0-200.0) BUN/Creatinine Ratio 39.29 H (12.00-20.00) Ratio Calcium 8.5 L (8.7-10.3) mg/dL C-Reactive Protein 4.7 H (0.0-0.8) mg/dL Assessment and Plan Assessment: This is a 84-year-old male who was transferred to our hospital from [place] for further evaluation of his medical problems noted below. 1. Covid 19 superimposed on bacterial pneumonia, with x-ray showing multifocal pneumonia: COVID 19 PCR positive at outside hospital on 12/17. Continue antibiotic with ceftriaxone and azithromycin day #3. Continue with Decadron 6 mg daily. Started on Remdesivir day 05/13. Pulmonology on board. 2. Acute hypoxic respiratory failure secondary to #1, currently on 2 L of oxygen. We will continue to monitor. Maintain O2 sats greater than 90% 3. Chronic atrial fibrillation with slow ventricular response noted on 12-lead EKG at outside hospital. I would continue court monitor. Patient is not maintained on anticoagulation as an outpatient. Consult cardiology 3b. 2.[address] monitor: Cardiology consult. Hold BB and CCB. 4. Essential hypertension: Blood pressure within acceptable range. At home, Patient is maintained on lisinopril 40 mg daily, Norvasc 5 mg daily, and hydralazine 25 mg twice a day. Patient started on lisinopril 20 mg daily and BP is controlled. Resume other BP meds as tolerated. 5. Hypothyroidism on levothyroxin 6. Stage IIIB chronic kidney disease 7. DVT prophylaxis with subcu Lovenox 8. CODE STATUS: DO NOT RESUSCITATE/DO NOT INTUBATE: Discussed with his daughter who is his DURABLE POWER OF YOUTH PROGRAM DIRECTOR by nursing staff 9. Physical debility, PT/OT consulted. Plan to [facility] for subacute rehab on discharge. Discussed with case management.
--- NOTE | 2019-12-23 00:31 | PN ---
PROGRESS NOTE DATE OF SERVICE: 12/22/2019 REASON FOR FOLLOWUP: Acute COVID-19 pneumonia. INTERVAL HISTORY: The patient is currently afebrile. The patient is breathing slightly comfortably. The patient did have a cough, not bringing up any sputum. No nausea, no vomiting. No abdominal pain or diarrhea. PHYSICAL EXAMINATION: Blood pressure 112/60 with a pulse of 64, temperature 98.6. He is 95% on 2 L nasal cannula. General description is an elderly male lying in bed in no distress. RESPIRATORY SYSTEM: Unlabored breathing, decreased breath sounds at the bases. No wheeze. HEART: S1, S2. Regular rate and rhythm. ABDOMEN: Soft, no tenderness. LABS: Hemoglobin is 10.3, white count 4.2, BUN of 55, creatinine is 1.4. CRP is 4.7. DIAGNOSTIC IMPRESSION AND PLAN: Patient with acute COVID-19 pneumonia seemed to have some clinical response to continue. Repeat chest x-ray tomorrow. Continue the patient on remdesivir, Lovenox and dexamethasone and monitor his clinical course closely. MMODL / IJN: [id number] /
[2019-12-23] MEDS: ALBUTEROL HFA INHALER INHALATION SCH ×4 (05:44→20:45)
[2019-12-23] MEDS: LEVOTHYROXINE 125 MCG TAB PO SCH (05:44)
[2019-12-23 06:12] LABS: Basophils % (A) 1 %; Eosinophils % (A) 0 %; HCT 31.7 % (39.0-53.0); HGB 10.4 gm/dL (13.0-17.5); Hypochromasia Slight; Lymphocytes # (A) 0.4 k/uL (1.0-4.8); Lymphocytes % (A) 16 %; MCH 31.2 pg (25.0-35.0); MCV 94.6 fL (80.0-100.0); Mean Platelet Volume 8.2; Monocytes # (A) 0.3 k/uL (0-1.0); Monocytes % (A) 12 %; Neutrophils # (A) 1.8 k/uL (1.3-7.7); Neutrophils % (A) 69 %; Platelet Count 306 k/uL (150-450); RBC 3.35 m/uL (4.30-5.90); RDW 14.7 % (11.5-15.5); WBC 2.7 k/uL (3.8-10.6)
[2019-12-23] MEDS: ENOXAPARIN 40 MG/0.4 ML SYRINGE SQ SCH (08:08)
[2019-12-23] MEDS: AZITHROMYCIN 250 MG TAB PO SCH (08:08)
[2019-12-23] MEDS: dexAMETHasone 4 MG TAB PO SCH (08:08)
[2019-12-23] MEDS: FUROSEMIDE 40 MG TAB PO SCH (08:08)
[2019-12-23] MEDS: lisinopriL 20 MG TAB PO SCH (08:09)
--- NOTE | 2019-12-23 09:02 | P.CRDCN ---
History of Present Illness Consult date: 12/22/19 Reason for Consult (text): A. fib, pauses Chief complaint: Shortness of breath History of present illness: This is a pleasant 84-year-old gentleman with documented history of paroxysmal atrial fibrillation, hypothyroidism, hypertension, who was initially transferred here from [facility] after being diagnosed with judge virus Covid 19 pneumonia. Cardiology consultation was requested because of atrial fibrillation and episodes of pauses. Patient initially presented to [facility] with symptoms of shortness of breath, productive cough, weakness fatigue and generalized body aches which had been going on for approximately one week duration. The initial chest x-ray showed diffuse p ulmonary infiltrates. Blood pressure 110/60 with a heart rate in the 60s, 94% on 2 L of oxygen. White blood cell count 4.2, hemoglobin 10.3, platelet count 268, d-dimer 1.5, sodium 135, potassium 4.0, chloride 100, CO2 24 BUN 55 and creatinine 1.4, pro calcitonin 0.13. No EKG available, patient's telemetry shows a normal sinus rhythm with a left bundle-branch block pattern, intermittent atrial fibrillation, patient is also noted at times to have pauses of up to 2-1/2 seconds. Most of these seem to occur during sleep. At the time of my examination, patient is alert, in no acute distress, afebrile, states that his breathing overall is improving, continues to have cough with sputum product ion. Past Medical History Past Medical History: Atrial Fibrillation, Hypertension, Thyroid Disorder History of Any Multi-Drug Resistant Organisms: None Reported Past Anesthesia/Blood Transfusion Reactions: No Reported Reaction Smoking Status: Former smoker - Past Family History Father History Unknown: Yes Medications and Allergies Home Medications Medication Instructions Recorded Confirmed Type Cetirizine HCl 10 mg PO DAILY 12/19/19 12/19/19 History Cholecalciferol [Vitamin D3 (25 1,000 unit PO DAILY 12/19/19 12/19/19 History Mcg = 1000 Iu)] Furosemide [Lasix] 40 mg PO DAILY 12/19/19 12/19/19 History Levothyroxine Sodium 125 mcg PO DAILY@0600 12/19/19 12/19/19 History Potassium Chloride 10 meq PO DAILY 12/19/19 12/19/19 History Simvastatin [Zocor] 20 mg PO HS 12/19/19 12/19/19 History Vit C/E/Zn/Coppr/Lutein/Zeaxan 1 cap PO DAILY 12/19/19 12/19/19 History [Preservision Areds 2 Softgel] amLODIPine [Norvasc] 5 mg PO DAILY 12/19/19 12/19/19 History hydrALAZINE HCL [Apresoline] 25 mg PO DAILY 12/19/19 12/19/19 History lisinopriL 40 mg PO DAILY 12/19/19 12/19/19 History metOLazone [Zaroxolyn] 2.5 mg PO DAILY 12/19/19 12/19/19 History Allergies Allergy/AdvReac Type Severity Reaction Status Date / Time naproxen [From Aleve] Allergy Unknown Verified 12/19/19 18:02 Physical Exam Vitals: Vital Signs Temp Pulse Resp BP BP Pulse Ox 12/23/19 07:00 97.4 F L 63 18 149/75 96 12/23/19 00:50 97.3 F L 58 L 18 137/65 95 12/22/19 19:40 98.6 F 64 16 112/60 95 12/22/19 16:14 94 L 12/22/19 15:00 98.1 F 66 18 111/65 96 Intake and Output 12/22/19 12/23/19 12/23/19 22:59 06:59 14:59 Output Total 550 1000 Balance -550 -1000 Output: Urine 550 1000 Other: Voiding Method Incontinent Incontinent # Voids 1 # Bowel Movements 1 PHYSICAL EXAMINATION: GENERAL: 84-year-old gentleman, in no acute distress at the time of my examination, 95% on 2 L of oxygen. HEENT: Head is atraumatic, normocephalic. Pupils equal, round. Sclera anicteric. Conjunctiva are clear. Mucous membranes of the mouth are moist. Neck is supple. There is no elevated jugular venous pressure. No carotid bruit is heard. HEART EXAMINATION: Heart S1, S2 normal. No murmur or gallop heard. CHEST EXAMINATION: Lungs are clear to auscultation and precussion. No chest wall tenderness is noted on palpation or with deep breathing. ABDOMEN: Soft, nontender. Bowel sounds are heard. No organomegaly noted. EXTREMITIES: 2+ peripheral pulses with no evidence of peripheral edema and no calf tenderness noted. NEUROLOGIC patient is awake, alert and oriented 3 . . Results 12/23/19 05:27 12/22/19 05:55 CBC 12/23/19 Range/Units 05:27 WBC 2.7 L (3.8-10.6) k/uL RBC 3.35 L (4.30-5.90) m/uL Hgb 10.4 L (13.0-17.5) gm/dL Hct 31.7 L (39.0-53.0) % Plt Count 306 (150-450) k/uL Comprehensive Metabolic Panel 12/22/19 Range/Units 05:55 Sodium 135 (135-145) mmol/L Potassium 4.0 (3.5-5.5) mmol/L Chloride 100 (96-109) mmol/L Carbon Dioxide 24.5 (21.6-31.8) mmol/L BUN 55.0 H (9.0-27.0) mg/dL Creatinine 1.4 (0.6-1.5) mg/dL Glucose 101 (70-110) mg/dL Calcium 8.5 L (8.7-10.3) mg/dL Current Medications Generic Name Dose Route Start Last Admin Trade Name Freq PRN Reason Stop Dose Admin Acetaminophen 650 mg 12/19/19 14:49 Acetaminophen Tab 325 Mg Tab PO Q6HR PRN Mild Pain or Fever > 100.5 Albuterol Sulfate 2 puff 12/19/19 16:00 12/23/19 05:44 Albuterol Hfa Inhaler INHALATION 2 puff RT-QID GUERO Administration Azithromycin 250 mg 12/20/19 09:00 12/23/19 08:08 Azithromycin 250 Mg Tab PO 250 mg DAILY GUERO Administration Dexamethasone 6 mg 12/19/19 15:30 12/23/19 08:08 Dexamethasone 4 Mg Tab PO 6 mg DAILY GUERO Administration Enoxaparin Sodium 40 mg 12/19/19 15:15 12/23/19 08:08 Enoxaparin 40 Mg/0.4 Ml Syringe SQ 40 mg DAILY GUERO Administration Furosemide 40 mg 12/20/19 09:00 12/23/19 08:08 Furosemide 40 Mg Tab PO 40 mg DAILY GUERO Administration Ceftriaxone Sodium 1 gm/ 50 mls @ 100 mls/hr 12/19/19 15:30 12/23/19 08:08 Sodium Chloride IVPB 100 mls/hr Q24HR GUERO Administration Remdesivir 100 mg/ Sodium 250 mls @ 250 mls/hr 12/21/19 12:00 12/22/19 12:11 Chloride IVPB 12/24/19 12:59 250 mls/hr DAILY@1200 GUERO Administration Levothyroxine Sodium 125 mcg 12/20/19 06:30 12/23/19 05:44 Levothyroxine 125 Mcg Tab PO 125 mcg DAILY@0630 GUERO Administration Lisinopril 20 mg 12/19/19 19:45 12/23/19 08:09 Lisinopril 20 Mg Tab PO 20 mg DAILY GUERO Administration Melatonin 3 mg 12/19/19 14:49 12/21/19 21:15 Melatonin 3 Mg Tablet PO 3 mg HS PRN Administration Insomnia Naloxone HCl 0.2 mg 12/19/19 14:49 Naloxone 0.4 Mg/Ml 1 Ml Vial IV Q2M PRN Opioid Reversal Ondansetron HCl 4 mg 12/19/19 14:49 Ondansetron 4 Mg/2 Ml Vial IVP Q8HR PRN Nausea And Vomiting Intake and Output 12/22/19 12/23/19 12/23/19 22:59 06:59 14:59 Output Total 550 1000 Balance -550 -1000 Output: Urine 550 1000 Other: Voiding Method Incontinent Incontinent # Voids 1 # Bowel Movements 1 12/23/19 05:27 12/22/19 05:55 EKG Interpretations (text) No EKG performed Assessment and Plan Plan: Assessment and plan #1 acute judge virus: 19 pneumonia #2 paroxysmal atrial fibrillation, with evidence of short pauses, occurring mostly with sleep #3 hypertension #4 hypothyroidism #5 chronic kidney disease, stage III Plan We will obtain an echocardiogram with Doppler study, continue to monitor for any significant tachycardia or bradycardia arrhythmias, or any significant pauses. Pauses occur mostly when the patient is sleeping, longest possible measured at 2-1/2 seconds, majority of them are around one second in duration. We will add a small dose of beta daniel, check a TSH level, obtain an EKG. We will also look into why the patient is not on oral anticoagulation, if there is no contraindication at this time we will consider the addition of Eliquis. Further recommendations to follow DNP note has been reviewed, I agree with a documented findings and plan of care. Patient was seen and examined.
[2019-12-23 09:54] LABS: African American GFR (CKD) 57.3 (60.0-200.0); Anion Gap 10.5 mmol/L (4.00-12.00); BUN/Creat Ratio 47.69 Ratio (12.00-20.00); C Reactive Protein 3.1 mg/dL (0.0-0.8); Calcium 8.6 mg/dL (8.7-10.3); Carbon Dioxide 24.5 mmol/L (21.6-31.8); Magnesium 1.6 mg/dL (1.5-2.4); Non-African American GFR(CKD) 49.4 (60.0-200.0)
[2019-12-23] MEDS: APIXABAN 2.5 MG TABLET PO SCH ×2 (10:29→20:49)
--- NOTE | 2019-12-23 11:45 | P.PN ---
Subjective Progress Note Date: 12/23/19 Principal diagnosis: COVID 19 Pneumonia CC: shortness of breath Patient says that his shortness of breath is improving. Patient has been afebrile in the past 24 hours. No acute issues overnight. Objective - Vital Signs Vital signs: Vital Signs Temp 97.4 F L 12/23/19 07:00 Pulse 63 12/23/19 08:00 Resp 18 12/23/19 08:00 BP 149/75 12/23/19 07:00 Pulse Ox 96 12/23/19 07:00 Intake & Output 12/22/19 12/23/19 12/23/19 18:59 06:59 18:59 Output Total 550 1000 1 Balance -550 -1000 -1 Output: Urine 550 1000 Stool 1 Other: Voiding Method Incontinent Incontinent # Voids 1 # Bowel Movements 1 - Exam General examination - Alert and Oriented 3 in NAD Heart - + S1S2 no murmurs Lungs - diffuse wheezing Abdomen soft NT ND +ve BS Extremities - No edema REHABILITATION INSPECTOR - Moving all 4 extremities spontaneously Psych - Calm and cooperative - Labs CBC & Chem 7: 12/23/19 05:27 12/23/19 05:27 Labs: Abnormal Lab Results - Last 24 Hours (Table) 12/22/19 12/23/19 12/23/19 Range/Units 12:46 05:27 05:27 WBC 2.7 L (3.8-10.6) k/uL RBC 3.35 L (4.30-5.90) m/uL Hgb 10.4 L (13.0-17.5) gm/dL Hct 31.7 L (39.0-53.0) % Lymphocytes # 0.4 L (1.0-4.8) k/uL D-Dimer 1.56 H (<0.60) mg/L FEU BUN 62.0 H (9.0-27.0) mg/dL Est GFR (CKD-EPI)AfAm 57.3 L (60.0-200.0) Est GFR (CKD-EPI)NonAf 49.4 L (60.0-200.0) BUN/Creatinine Ratio 47.69 H (12.00-20.00) Ratio Calcium 8.6 L (8.7-10.3) mg/dL C-Reactive Protein 3.1 H (0.0-0.8) mg/dL Assessment and Plan Assessment: This is a 84-year-old male who was transferred to our hospital from [place] for further evaluation of his medical problems noted below. 1. Covid 19 superimposed on bacterial pneumonia, with x-ray showing multifocal pneumonia: COVID 19 PCR positive at outside hospital on 12/17. Continue antibiotic with ceftriaxone and azithromycin day #4. Continue with Decadron 6 mg daily. Started on Remdesivir day /5. Pulmonology on board. D-dimer is increasing. CRP LDH are decreasing 2. Acute hypoxic respiratory failure secondary to #1, currently on 2 L of oxygen. We will continue to monitor. Maintain O2 sats greater than 90% 3. Chronic atrial fibrillation with slow ventricular response noted on 12-lead EKG at outside hospital. I would continue ad terminal makeup operator. Patient is not maintained on anticoagulation as an outpatient -> cardiology to investigate reason. Hold her beta daniel to cardiology especially since patient has pauses. 3b. 2.3 second pause on ad terminal makeup operator: Cardiology on board 4. Essential hypertension: Blood pressure within acceptable range. At home, Patient is maintained on lisinopril 40 mg daily, Norvasc 5 mg daily, and hydralazine 25 mg twice a day. Patient started on lisinopril 20 mg daily and BP is controlled. Resume other BP meds as tolerated. 5. Hypothyroidism on levothyroxin 6. Stage IIIB chronic kidney disease 7. DVT prophylaxis with subcu Lovenox 8. CODE STATUS: DO NOT RESUSCITATE/DO NOT INTUBATE: Discussed with his daughter who is his DURABLE POWER OF CHIEF NURSING OFFICER by nursing staff 9. Physical debility, PT/OT consulted. Plan to [facility] for subacute rehab on discharge. Discussed with case management.
--- NOTE | 2019-12-23 12:44 | P.PN ---
Subjective Progress Note Date: 12/23/19 Principal diagnosis: COVID 19 pneumonitis 84-year-old male patient transferred from [facility] after being diagnosed with a coronavirus Covid 19 multifocal pneumonia. The patient is currently hypoxic on 2 L of oxygen by nasal cannula with a pulse ox of 94%. The patient presented to the outside hospital approximately 3 days ago. His symptoms started approximately 5-7 days ago when he started feeling weak and tired and congested and cough and progressively he was having more shortness of breath. He was being given antibiotics with accommodation Rocephin and Zi thromax. Chest x-ray was showing diffuse breath and pulmonary infiltrates. The patient had also become bronchus spastic and wheezy. He has no previous history of lung disease per notes of COPD or asthma. Hemodynamically stable. He is currently afebrile with a temperature of 97 7. The inflammatory markers are still pending for now. LFTs are within normal. No nausea. No vomiting. No diarrhea. White cell count is at 3.6. The patient has lymphopenia with a lymphocyte count of 0.4. No altered mentation. It is at 1.62 and the patient is on a Lovenox dose of 40 mg subcu and the patient was started on Decadron 6 mg by mouth daily. On 12/21/2019 patient seen in follow-up on a general medical surgical floor. He is resting in bed, he looks weak and worn out, he is on 2 L of oxygen with a pulse ox of 93%, he does have a loose nonproductive cough, sounds wheezy and today's exam, he continues on oral Decadron, azithromycin and Rocephin, and today's is second dose of Remdesivir. He is on daily dose of oral Lasix, he is on prophylactic dose of Lovenox. Denies any nausea or vomiting, today d-dimer is 1.18. CRP is 55.6, and LDH is 612. On 12/22/2019 patient seen in follow-up on the general medical surgical floor. He is awake and alert, appears to be in no acute distress, he is resting in bed,he is currently afebrile, his breathing has improved, breathing comfortably, occasional cough, occasional sputum production, no compressive chest pain, no nausea vomiting or diarrhea. Patient continues on Remdesivir, oral Decadron, Lovenox, and he is on a combination of Rocephin and azithromycin. On 12/23/2019 patient seen in follow-up on medical surgical floor, feeling better today, shortness of breath is improving. Patient has been afebrile in the last 24 hours, no acute events overnight, today's labs have been reviewed, CRP is trending down, LDH is trending down, patient continues on room does air, oral Decadron, Lovenox, and Rocephin and azithromycin. Remains on 2 L of oxygen pulse ox 96%. Objective - Vital Signs Vital signs: Vital Signs Temp 97.4 F L 12/23/19 07:00 Pulse 63 12/23/19 08:00 Resp 18 12/23/19 08:00 BP 149/75 12/23/19 07:00 Pulse Ox 96 12/23/19 07:00 Intake & Output 12/22/19 12/23/19 12/23/19 18:59 06:59 18:59 Output Total 550 1000 1 Balance -550 -1000 -1 Output: Urine 550 1000 Stool 1 Other: Voiding Method Incontinent Incontinent # Voids 1 # Bowel Movements 1 - Exam GENERAL EXAM: Alert, very pleasant, 84-year-old white male, on 2 L of oxygen and the pulse ox of 96% comfortable in no apparent distress. HEAD: Normocephalic/atraumatic. EYES: Normal reaction of pupils, equal size. Conjunctiva pink, sclera white. NOSE: Clear with pink turbinates. THROAT: No erythema or exudates. NECK: No masses, no JVD, no thyroid enlargement, no adenopathy. CHEST: No chest wall deformity. Symmetrical expansion. LUNGS: Equal air entry with no crackles, wheeze, rhonchi or dullness. CVS: Regular rate and rhythm, normal S1 and S2, no gallops, no murmurs, no rubs ABDOMEN: Soft, nontender. No hepatosplenomegaly, normal bowel sounds, no guarding or rigidity. EXTREMITIES: No clubbing, no edema, no cyanosis, 2+ pulses and upper and lower extremities. MUSCULOSKELETAL: Muscle strength and tone normal. SPINE: No scoliosis or deformity SKIN: No rashes CENTRAL NERVOUS SYSTEM: Alert and oriented -3. No focal deficits, tone is normal in all 4 extremities. PSYCHIATRIC: Alert and oriented -3. Appropriate affect. Intact judgment and insight. - Labs CBC & Chem 7: 12/23/19 05:27 12/23/19 05:27 Labs: Abnormal Lab Results - Last 24 Hours (Table) 12/22/19 12/23/19 12/23/19 Range/Units 12:46 05:27 05:27 WBC 2.7 L (3.8-10.6) k/uL RBC 3.35 L (4.30-5.90) m/uL Hgb 10.4 L (13.0-17.5) gm/dL Hct 31.7 L (39.0-53.0) % Lymphocytes # 0.4 L (1.0-4.8) k/uL D-Dimer 1.56 H (<0.60) mg/L FEU BUN 62.0 H (9.0-27.0) mg/dL Est GFR (CKD-EPI)AfAm 57.3 L (60.0-200.0) Est GFR (CKD-EPI)NonAf 49.4 L (60.0-200.0) BUN/Creatinine Ratio 47.69 H (12.00-20.00) Ratio Calcium 8.6 L (8.7-10.3) mg/dL C-Reactive Protein 3.1 H (0.0-0.8) mg/dL Assessment and Plan Plan: Assessment: 1 acute coronavirus Covid 19 pneumonia, initiated on Remdesivir on 12/20/2019 2 acute hypoxic respiratory failure secondary to above and the patient had diffuse breath and pulmonary infiltrates and the patient is currently on 2 L of oxygen by nasal cannula 3 increased bronchospasm wheezing secondary to above 4 chronic atrial fibrillation 5 hypertension 6 hypothyroidism 7 chronic stage III kidney disease Plan: Continue current medical treatment, continue Remdesivir, oral Decadron, empiric antibiotics, inflammatory markers are improving, patient is feeling better, breathing easier, no acute events overnight, his been afebrile. We'll continue to follow. Follow chest x-ray in the morning I performed a history & physical examination of the patient and discussed their management with my nurse practitioner, Sunshine Freitas. I reviewed the nurse practitioner's note and agree with the documented findings and plan of care. Lung sounds are positive for diffuse wheezes. The findings and the impression was discussed with the patient. I attest to the documentation by the nurse practitioner. Time with Patient: Less than 30
[2019-12-23] MEDS: REMDESIVIR (EUA) 100 MG in SODIUM CHLORIDE 0.9% 250 ML IVPB SCH (13:07)
--- NOTE | 2019-12-24 02:12 | PN ---
PROGRESS NOTE DATE OF SERVICE: 12/23/2019 REASON FOR FOLLOWUP: Acute COVID-19 pneumonia. INTERVAL HISTORY: The patient is currently afebrile. Patient is breathing comfortably. The patient denies having any chest pain or shortness of breath. Minimal cough. No nausea, no vomiting. No abdominal pain, no diarrhea. PHYSICAL EXAMINATION: Blood pressure 119/59 with a pulse of 53, temperature is 97.8. He is 95% on 2 L nasal cannula. General description is an elderly male lying in bed in no distress. RESPIRATORY SYSTEM: Unlabored breathing with no wheeze or crackle. ABDOMEN: Soft. EXTREMITIES: No edema of the feet. LABS: Hemoglobin is 10.4, white count 2.7, BUN of 62, creatinine 1.3. DIAGNOSTIC IMPRESSION AND PLAN: Patient with acute COVID-19 pneumonia for which the patient has been treated with remdesivir. Will receive his third dose today. In addition to the dexamethasone, Lovenox along with respiratory support and monitor his clinical course closely. MMODL / IJN: [id number] /
[2019-12-24] MEDS: LEVOTHYROXINE 125 MCG TAB PO SCH (05:59)
--- NOTE | 2019-12-24 07:01 | ECHOF ---
Referral Reason:afib MEASUREMENTS -------- HEIGHT: 167.6 cm WEIGHT: 87.1 kg BP: 149/75 RVIDd: 4.6 cm (< 3.3) IVSd: 2.1 cm (0.6 - 1.1) LVIDd: 2.4 cm (3.9 - 5.3) LVPWd: 1.9 cm (0.6 - 1.1) IVSs: 2.7 cm LVIDs: 1.8 cm LVPWs: 1.9 cm LAESV Index (A-L): 61.59 ml/m Ao Diam: 3.1 cm (2.0 - 3.7) AV Cusp: 2.2 cm (1.5 - 2.6) AR PHT: 672 ms RAP: 5.00 mmHg RVSP: 39.47 mmHg FINDINGS -------- Atrial fibrillation. This was a technically adequate study. The left ventricular size is normal. There is severe concentric left ventricular hypertrophy. Ove rall left ventricular systolic function is low-normal with, an EF between 50 - 55 %. The right ventricle is severely enlarged. LA is severely dilated >40 ml/m2 The right atrium is mildly enlarged. Interatrial and interventricular septum intact. Aortic valve is trileaflet and is mildly thickened. There is moderate aortic regurgitation. There is no evidence of aortic stenosis. Mild mitral annular calcification present. Moderate mitral regurgitation is present. [id number] tricuspid regurgitation present. There is mild pulmonary hypertension. The right ventricular systolic pressure, as measured by Doppler, is 39.47mmHg. There is no pulmonic regurgitation present. The aortic root size is normal. IVC Not well visulized. There is no pericardial effusion. CONCLUSIONS -------- 1. There is severe concentric left ventricular hypertrophy. 2. Overall left ventricular systolic function is low-normal with, an EF between 50 - 55 %. 3. The right ventricle is severely enlarged. 4. LA is severely dilated >40 ml/m2 5. The right atrium is mildly enlarged. 6. There is moderate aortic regurgitation. 7. Mild mitral annular calcification present. 8. Moderate mitral regurgitation is present. 9. [id number]-[id number] tricuspid regurgitation present. 10. There is mild pulmonary hypertension. NEWS PHOTOGRAPHER: Louise Cerda [facility] [place]
[2019-12-24 07:15] LABS: Basophils % (A) 1 %; Eosinophils % (A) 0 %; HCT 33.4 % (39.0-53.0); HGB 10.4 gm/dL (13.0-17.5); Lymphocytes # (A) 0.5 k/uL (1.0-4.8); Lymphocytes % (A) 16 %; MCH 29.7 pg (25.0-35.0); MCHC 31.2 g/dL (31.0-37.0); MCV 95.1 fL (80.0-100.0); Mean Platelet Volume 8.4; Monocytes # (A) 0.3 k/uL (0-1.0); Monocytes % (A) 10 %; Neutrophils # (A) 2.3 k/uL (1.3-7.7); Neutrophils % (A) 71 %; Platelet Count 322 k/uL (150-450); RBC 3.51 m/uL (4.30-5.90); WBC 3.2 k/uL (3.8-10.6)
[2019-12-24] MEDS: FUROSEMIDE 40 MG TAB PO SCH (07:29)
[2019-12-24] MEDS: APIXABAN 2.5 MG TABLET PO SCH ×2 (07:29→20:29)
[2019-12-24] MEDS: lisinopriL 20 MG TAB PO SCH (07:29)
[2019-12-24] MEDS: dexAMETHasone 4 MG TAB PO SCH (07:30)
[2019-12-24] MEDS: AZITHROMYCIN 250 MG TAB PO SCH (07:30)
[2019-12-24] MEDS: ALBUTEROL HFA INHALER INHALATION SCH ×4 (08:30→19:35)
[2019-12-24] MEDS: REMDESIVIR (EUA) 100 MG in SODIUM CHLORIDE 0.9% 250 ML IVPB SCH (11:50)
--- NOTE | 2019-12-24 13:05 | P.PN ---
Subjective Progress Note Date: 12/24/19 Principal diagnosis: COVID 19 pneumonitis 84-year-old male patient transferred from [facility] after being diagnosed with a coronavirus Covid 19 multifocal pneumonia. The patient is currently hypoxic on 2 L of oxygen by nasal cannula with a pulse ox of 94%. The patient presented to the outside hospital approximately 3 days ago. His symptoms started approximately 5-7 days ago when he started feeling weak and tired and congested and cough and progressively he was having more shortness of breath. He was being given antibiotics with accommodation Rocephin and Zi thromax. Chest x-ray was showing diffuse breath and pulmonary infiltrates. The patient had also become bronchus spastic and wheezy. He has no previous history of lung disease per notes of COPD or asthma. Hemodynamically stable. He is currently afebrile with a temperature of 97 7. The inflammatory markers are still pending for now. LFTs are within normal. No nausea. No vomiting. No diarrhea. White cell count is at 3.6. The patient has lymphopenia with a lymphocyte count of 0.4. No altered mentation. It is at 1.62 and the patient is on a Lovenox dose of 40 mg subcu and the patient was started on Decadron 6 mg by mouth daily. On 12/21/2019 patient seen in follow-up on a general medical surgical floor. He is resting in bed, he looks weak and worn out, he is on 2 L of oxygen with a pulse ox of 93%, he does have a loose nonproductive cough, sounds wheezy and today's exam, he continues on oral Decadron, azithromycin and Rocephin, and today's is second dose of Remdesivir. He is on daily dose of oral Lasix, he is on prophylactic dose of Lovenox. Denies any nausea or vomiting, today d-dimer is 1.18. CRP is 55.6, and LDH is 612. On 12/22/2019 patient seen in follow-up on the general medical surgical floor. He is awake and alert, appears to be in no acute distress, he is resting in bed,he is currently afebrile, his breathing has improved, breathing comfortably, occasional cough, occasional sputum production, no compressive chest pain, no nausea vomiting or diarrhea. Patient continues on Remdesivir, oral Decadron, Lovenox, and he is on a combination of Rocephin and azithromycin. On 12/23/2019 patient seen in follow-up on medical surgical floor, feeling better today, shortness of breath is improving. Patient has been afebrile in the last 24 hours, no acute events overnight, today's labs have been reviewed, CRP is trending down, LDH is trending down, patient continues on room does air, oral Decadron, Lovenox, and Rocephin and azithromycin. Remains on 2 L of oxygen pulse ox 96%. On 12/24/2019 patient seen in follow-up on a general medical surgical floor, he is awake and alert, his breathing is improving, still has some scattered wheezes and coughing, but overall breathing comfortably, he is afebrile, denies any chest pain, no nausea no vomiting, no abdominal pain or diarrhea. he has completed his course of Remdesivir, today's chest x-ray has been reviewed, showing some improvement in appearance of bilateral infiltrates. Today's labs have been reviewed, inflammatory markers were trending down, repeat coronavirus PCR is positive. Discharge planning is in progress for possibility of discharge to [facility] for Covid 19 patient. Discharge planning is following. Objective - Vital Signs Vital signs: Vital Signs Temp 98.9 F 12/24/19 07:00 Pulse 45 L 12/24/19 08:00 Resp 20 12/24/19 08:00 BP 134/71 12/24/19 07:00 Pulse Ox 95 12/24/19 07:00 Intake & Output 12/23/19 12/24/19 12/24/19 18:59 06:59 18:59 Intake Total 180 Output Total 677 1150 701 Balance -677 -1150 -521 Intake: Oral 180 Output: Urine 675 1150 700 Stool 2 1 Other: Voiding Method Incontinent Incontinent Incontinent # Bowel Movements 1 - Exam GENERAL EXAM: Alert, very pleasant, 84-year-old white male, on 2 L of oxygen and the pulse ox of 96% comfortable in no apparent distress. HEAD: Normocephalic/atraumatic. EYES: Normal reaction of pupils, equal size. Conjunctiva pink, sclera white. NOSE: Clear with pink turbinates. THROAT: No erythema or exudates. NECK: No masses, no JVD, no thyroid enlargement, no adenopathy. CHEST: No chest wall deformity. Symmetrical expansion. LUNGS: Equal air entry with no crackles, wheeze, rhonchi or dullness. CVS: Regular rate and rhythm, normal S1 and S2, no gallops, no murmurs, no rubs ABDOMEN: Soft, nontender. No hepatosplenomegaly, normal bowel sounds, no guarding or rigidity. EXTREMITIES: No clubbing, no edema, no cyanosis, 2+ pulses and upper and lower extremities. MUSCULOSKELETAL: Muscle strength and tone normal. SPINE: No scoliosis or deformity SKIN: No rashes CENTRAL NERVOUS SYSTEM: Alert and oriented -3. No focal deficits, tone is normal in all 4 extremities. PSYCHIATRIC: Alert and oriented -3. Appropriate affect. Intact judgment and insight. - Labs CBC & Chem 7: 12/24/19 06:44 12/23/19 05:27 Labs: Abnormal Lab Results - Last 24 Hours (Table) 12/24/19 12/24/19 Range/Units 06:44 11:00 WBC 3.2 L (3.8-10.6) k/uL RBC 3.51 L (4.30-5.90) m/uL Hgb 10.4 L (13.0-17.5) gm/dL Hct 33.4 L (39.0-53.0) % Lymphocytes # 0.5 L (1.0-4.8) k/uL Coronavirus (PCR) Detected A (Not Detectd) Assessment and Plan Plan: Assessment: 1 acute coronavirus Covid 19 pneumonia, initiated on Remdesivir on 12/20/2019, completed treatment on 12/24/2019. 2 acute hypoxic respiratory failure secondary to above and the patient had diffuse breath and pulmonary infiltrates and the patient is currently on 2 L of oxygen by nasal cannula 3 increased bronchospasm wheezing secondary to above, improved 4 chronic atrial fibrillation 5 hypertension 6 hypothyroidism 7 chronic stage III kidney disease Plan: Patient has completed his Remdesivir today, he can complete his 10 day course of Decadron, vital signs are stable, he is afebrile, breathing comfortably, minimal cough. Repeat Covid 19 was positive, discharge planning is in progress for possibility of discharge to [facility] that accepts Covid 19 patients. From pulmonary perspective patient is clear for discharge once those arrangements are compl eted. I performed a history & physical examination of the patient and discussed their management with my nurse practitioner, Sunshine Freitas. I reviewed the nurse practitioner's note and agree with the documented findings and plan of care. Lung sounds are positive for diffuse wheezes. The findings and the impression was discussed with the patient. I attest to the documentation by the nurse pra ctitioner. Time with Patient: Less than 30
[2019-12-24 13:29] LABS: African American GFR (CKD) 63.1 (60.0-200.0); Anion Gap 10.4 mmol/L (4.00-12.00); BUN/Creat Ratio 54.17 Ratio (12.00-20.00); Calcium 8.3 mg/dL (8.7-10.3); Carbon Dioxide 22.6 mmol/L (21.6-31.8); Non-African American GFR(CKD) 54.4 (60.0-200.0); Potassium 3.6 mmol/L (3.5-5.5)
--- NOTE | 2019-12-24 14:15 | XR ---
EXAMINATION TYPE: XR chest 1V portable DATE OF EXAM: 12/24/2019 CLINICAL HISTORY: Covid 19 pneumonia TECHNIQUE: Portable upright view of the chest COMPARISON: 12/20/2019 chest radiograph FINDINGS: Cardiac silhouette is prominent and may be accentuated by low lung volumes. Pulmonary vascu lature is normal. Mildly decreased patchy multifocal airspace opacities versus 12/20/2019. No pleural effusion or pneumothorax seen. Degenerative changes of the right shoulder. IMPRESSION: Patchy multifocal airspace opacities are mildly decreased versus 12/20/2019.
--- NOTE | 2019-12-24 17:36 | P.PN ---
Subjective Progress Note Date: 12/24/19 (delayed charting) Principal diagnosis: shortness of breath Patient is an 84-year-old male past medical history of A. fib and prior tobacco abuse who presented from [facility] for multifocal: 19 pneumonia. Patient completed Remdesivir on 12/23. Patient seen and examined at bedside. He continues to have some shortness of breath and wheezing. He states he is overall feeling much improved. No nausea, vomiting, or diarrhea. He is aware that he'll be going to rehab and is agreeable. General: Ill appearing, no distress, appears younger than stated age Derm: warm, dry Head: atraumatic, normocephalic, symmetric Eyes: EOMI, no lid lag, anicteric sclera Mouth: no lip lesion, mucus membranes moist Cardiovascular: S1S2 reg, no murmur, positive posterior tibial pulse bilateral, Lungs: Diffuse wheeze bilateral , no accessory muscle use Abdominal: soft, nontender to palpation, no guarding, no appreciable organomegaly Ext: no gross muscle atrophy, trace edema, no contractures Neuro: CN II-XI grossly intact, no focal neuro deficits Psych: Alert, oriented, appropriate affect CVOID19 pneumonia -Continue with dexamethasone for a total of 10 days. Will complete Remdesivir on 12/23 -Clinically doubt superimposed bacterial pneumonia with pro-calcitonin of less than 2. Patient completed a five-day course of ceftriaxone and azithromycin and this has been discontinued -Albuterol -Supportive care -Pulmonary and infectious disease recommendations appreciated Acute hypoxic respiratory failure secondary to above -Supportive care Chronic atrial fibrillation rate controlled -Continue with Eliquis Hypertension -controlled -Continue with lisinopril -Home Norvasc, and hydralazine on hold Hypothyroidism -Levothyroxine -TSH normal Chronic kidney disease stage III B Plan had been to discharge to medical [facility] and moved. However there is no bed available. Repeat Covid 19 testing is still positive. We'll look for additional options for halfway facility. DVT prophylaxis: Margret Discussed with: patient, nursing, CM, social work Anticipated discharge: 2-[address]: SNF A total of 35 minutes was spent on the care of this complex patient more than 50% of the time was spent in counseling and care coordination. Objective - Vital Signs Vital signs: Vital Signs Temp 97.9 F 12/24/19 16:00 Pulse 57 L 12/24/19 16:00 Resp 16 12/24/19 16:00 BP 132/69 12/24/19 16:00 Pulse Ox 96 12/24/19 16:00 Intake & Output 12/23/19 12/24/19 12/24/19 18:59 06:59 18:59 Intake Total 180 Output Total 677 1150 703 Balance -525 -1345 -643 Intake: Oral 180 Output: Urine 675 1150 701 Stool 2 2 Other: Voiding Method Incontinent Incontinent Incontinent # Bowel Movements 1 - Labs CBC & Chem 7: 12/24/19 06:44 12/24/19 06:44 Labs: Abnormal Lab Results - Last 24 Hours (Table) 12/24/19 12/24/19 12/24/19 Range/Units 06:44 06:44 11:00 WBC 3.2 L (3.8-10.6) k/uL RBC 3.51 L (4.30-5.90) m/uL Hgb 10.4 L (13.0-17.5) gm/dL Hct 33.4 L (39.0-53.0) % Lymphocytes # 0.5 L (1.0-4.8) k/uL D-Dimer (<0.60) mg/L FEU BUN 65.0 H (9.0-27.0) mg/dL Est GFR (CKD-EPI)NonAf 54.4 L (60.0-200.0) BUN/Creatinine Ratio 54.17 H (12.00-20.00) Ratio Calcium 8.3 L (8.7-10.3) mg/dL C-Reactive Protein 2.0 H (0.0-0.8) mg/dL Coronavirus (PCR) Detected A (Not Detectd) 12/24/19 Range/Units 12:56 WBC (3.8-10.6) k/uL RBC (4.30-5.90) m/uL Hgb (13.0-17.5) gm/dL Hct (39.0-53.0) % Lymphocytes # (1.0-4.8) k/uL D-Dimer 1.27 H (<0.60) mg/L FEU BUN (9.0-27.0) mg/dL Est GFR (CKD-EPI)NonAf (60.0-200.0) BUN/Creatinine Ratio (12.00-20.00) Ratio Calcium (8.7-10.3) mg/dL C-Reactive Protein (0.0-0.8) mg/dL Coronavirus (PCR) (Not Detectd)
[2019-12-24] MEDS: BENZOCAINE/MENTHOL LOZENG 1 EACH LOZENGE MUCOUS MEM PRN (20:29)
[2019-12-24 20:53] VITALS: RESP 18
--- NOTE | 2019-12-24 23:25 | PN ---
PROGRESS NOTE DATE OF SERVICE: 12/24/2019 REASON FOR FOLLOWUP: COVID-19 pneumonia. INTERVAL HISTORY: The patient is currently afebrile. The patient is breathing comfortably. He is currently on 2 L cannula. Denies having any chest pain. Some cough. No nausea or vomiting or abdominal pain or diarrhea. PHYSICAL EXAMINATION: Blood pressure 144/80 with a pulse of 50, temperature 97.5. He is 94% on 2 L nasal cannula. General description is an elderly male lying in bed in no distress. RESPIRATORY SYSTEM: Unlabored breathing with decreased breath sounds at the base. No wheeze. HEART: S1, S2. Regular rate and rhythm. ABDOMEN: Soft. No tenderness. LABS: D-dimer is down to 1.27, BUN of 65, creatinine 1.2. DIAGNOSTIC IMPRESSION AND PLAN: Patient with acute COVID-19 pneumonia in this patient who has completed his 5-day course of remdesivir. Inflammatory markers show a downward trend. Chest x-ray with mild improvement. To continue with dexamethasone, Lovenox and supportive treatment and monitor his clinical course closely. MMODL / IJN: [id number] /
[2019-12-25] MEDS: LEVOTHYROXINE 125 MCG TAB PO SCH (05:28)
[2019-12-25] MEDS: BENZOCAINE/MENTHOL LOZENG 1 EACH LOZENGE MUCOUS MEM PRN (05:44)
[2019-12-25 06:10] LABS: Basophils % (A) 0 %; Eosinophils % (A) 0 %; HCT 33.5 % (39.0-53.0); HGB 10.5 gm/dL (13.0-17.5); Lymphocytes # (A) 0.6 k/uL (1.0-4.8); Lymphocytes % (A) 13 %; MCH 29.6 pg (25.0-35.0); MCHC 31.3 g/dL (31.0-37.0); MCV 94.6 fL (80.0-100.0); Mean Platelet Volume 9.1; Monocytes # (A) 0.3 k/uL (0-1.0); Monocytes % (A) 7 %; Neutrophils # (A) 3.4 k/uL (1.3-7.7); Neutrophils % (A) 78 %; Platelet Count 343 k/uL (150-450); RBC 3.54 m/uL (4.30-5.90); WBC 4.4 k/uL (3.8-10.6)
[2019-12-25] MEDS: ALBUTEROL HFA INHALER INHALATION SCH ×3 (08:07→16:10)
[2019-12-25] MEDS: lisinopriL 20 MG TAB PO SCH (08:30)
[2019-12-25] MEDS: FUROSEMIDE 40 MG TAB PO SCH (08:30)
[2019-12-25] MEDS: dexAMETHasone 4 MG TAB PO SCH (08:30)
[2019-12-25] MEDS: APIXABAN 2.5 MG TABLET PO SCH (08:30)
[2019-12-25 10:03] LABS: African American GFR (CKD) 63.1 (60.0-200.0); Albumin 3.2 g/dL (3.80-4.90); Albumin/Globulin Ratio 1.52 (1.60-3.17); Anion Gap 7.9 mmol/L (4.00-12.00); C Reactive Protein 1.4 mg/dL (0.0-0.8); Calcium 8.5 mg/dL (8.7-10.3); Carbon Dioxide 25.1 mmol/L (21.6-31.8); Globulin 2.1 g/dL (1.6-3.3); Non-African American GFR(CKD) 54.4 (60.0-200.0); Potassium 4.1 mmol/L (3.5-5.5); Total Bilirubin 0.3 mg/dL (0.3-1.2); Total Protein 5.3 g/dL (6.2-8.2)
--- NOTE | 2019-12-25 12:29 | P.PN ---
Subjective Progress Note Date: 12/25/19 Principal diagnosis: COVID 19 pneumonitis 84-year-old male patient transferred from [facility] after being diagnosed with a coronavirus Covid 19 multifocal pneumonia. The patient is currently hypoxic on 2 L of oxygen by nasal cannula with a pulse ox of 94%. The patient presented to the outside hospital approximately 3 days ago. His symptoms started approximately 5-7 days ago when he started feeling weak and tired and congested and cough and progressively he was having more shortness of breath. He was being given antibiotics with accommodation Rocephin and Zi thromax. Chest x-ray was showing diffuse breath and pulmonary infiltrates. The patient had also become bronchus spastic and wheezy. He has no previous history of lung disease per notes of COPD or asthma. Hemodynamically stable. He is currently afebrile with a temperature of 97 7. The inflammatory markers are still pending for now. LFTs are within normal. No nausea. No vomiting. No diarrhea. White cell count is at 3.6. The patient has lymphopenia with a lymphocyte count of 0.4. No altered mentation. It is at 1.62 and the patient is on a Lovenox dose of 40 mg subcu and the patient was started on Decadron 6 mg by mouth daily. On 12/21/2019 patient seen in follow-up on a general medical surgical floor. He is resting in bed, he looks weak and worn out, he is on 2 L of oxygen with a pulse ox of 93%, he does have a loose nonproductive cough, sounds wheezy and today's exam, he continues on oral Decadron, azithromycin and Rocephin, and today's is second dose of Remdesivir. He is on daily dose of oral Lasix, he is on prophylactic dose of Lovenox. Denies any nausea or vomiting, today d-dimer is 1.18. CRP is 55.6, and LDH is 612. On 12/22/2019 patient seen in follow-up on the general medical surgical floor. He is awake and alert, appears to be in no acute distress, he is resting in bed,he is currently afebrile, his breathing has improved, breathing comfortably, occasional cough, occasional sputum production, no compressive chest pain, no nausea vomiting or diarrhea. Patient continues on Remdesivir, oral Decadron, Lovenox, and he is on a combination of Rocephin and azithromycin. On 12/23/2019 patient seen in follow-up on medical surgical floor, feeling better today, shortness of breath is improving. Patient has been afebrile in the last 24 hours, no acute events overnight, today's labs have been reviewed, CRP is trending down, LDH is trending down, patient continues on room does air, oral Decadron, Lovenox, and Rocephin and azithromycin. Remains on 2 L of oxygen pulse ox 96%. On 12/24/2019 patient seen in follow-up on a general medical surgical floor, he is awake and alert, his breathing is improving, still has some scattered wheezes and coughing, but overall breathing comfortably, he is afebrile, denies any chest pain, no nausea no vomiting, no abdominal pain or diarrhea. he has completed his course of Remdesivir, today's chest x-ray has been reviewed, showing some improvement in appearance of bilateral infiltrates. Today's labs have been reviewed, inflammatory markers were trending down, repeat coronavirus PCR is positive. Discharge planning is in progress for possibility of discharge to [facility]CF for Covid 19 patient. Discharge planning is following. On 12/25/2019 patient seen in follow-up on medical surgical floor, she is resting comfortably in bed, omeprazole 6 of 96%, hemodynamically stable, his been afebrile, he has completed the course of Remdesivir. He is breathing comfortably, no significant cough or congestion, he remains on oral Decadron, he was started on oral anticoagulation, he is on oral dose of Lasix. Yesterday his chest x-ray showing multifocal patchy airspace opacities that are slightly improved since admission. Hemodynamically patient is stable, he is in no acute events overnight, his repeat Covid 19 testing came back positive, and discharge planning is in progress for transfer to ECF for Covid 19 positive patients Objective - Vital Signs Vital signs: Vital Signs Temp 98.4 F 12/25/19 07:00 Pulse 57 L 12/25/19 07:00 Resp 18 12/24/19 20:20 BP 172/86 12/25/19 07:00 Pulse Ox 97 12/25/19 07:00 Intake & Output 10/15/20 10/16/20 10/16/20 18:59 06:59 18:59 Intake Total 360 Output Total 703 2375 Balance -343 -2374 Intake: Oral 360 Output: Urine 701 2375 Stool 2 Other: Voiding Method Incontinent Incontinent # Bowel Movements 1 1 - Exam GENERAL EXAM: Alert, very pleasant, 84-year-old white male, on room air with the pulse ox of 96% comfortable in no apparent distress. HEAD: Normocephalic/atraumatic. EYES: Normal reaction of pupils, equal size. Conjunctiva pink, sclera white. NOSE: Clear with pink turbinates. THROAT: No erythema or exudates. NECK: No masses, no JVD, no thyroid enlargement, no adenopathy. CHEST: No chest wall deformity. Symmetrical expansion. LUNGS: Equal air entry with no crackles, wheeze, rhonchi or dullness. CVS: Regular rate and rhythm, normal S1 and S2, no gallops, no murmurs, no rubs ABDOMEN: Soft, nontender. No hepatosplenomegaly, normal bowel sounds, no guarding or rigidity. EXTREMITIES: No clubbing, no edema, no cyanosis, 2+ pulses and upper and lower extremities. MUSCULOSKELETAL: Muscle strength and tone normal. SPINE: No scoliosis or deformity SKIN: No rashes CENTRAL NERVOUS SYSTEM: Alert and oriented -3. No focal deficits, tone is normal in all 4 extremities. PSYCHIATRIC: Alert and oriented -3. Appropriate affect. Intact judgment and insight. - Labs CBC & Chem 7: 12/25/19 05:51 12/25/19 05:51 Labs: Abnormal Lab Results - Last 24 Hours (Table) 12/24/19 12/24/19 12/24/19 Range/Units 06:44 11:00 12:56 RBC (4.30-5.90) m/uL Hgb (13.0-17.5) gm/dL Hct (39.0-53.0) % Lymphocytes # (1.0-4.8) k/uL D-Dimer 1.27 H (<0.60) mg/L FEU BUN 65.0 H (9.0-27.0) mg/dL Est GFR (CKD-EPI)NonAf 54.4 L (60.0-200.0) BUN/Creatinine Ratio 54.17 H (12.00-20.00) Ratio Calcium 8.3 L (8.7-10.3) mg/dL C-Reactive Protein 2.0 H (0.0-0.8) mg/dL Total Protein (6.2-8.2) g/dL Albumin (3.80-4.90) g/dL Albumin/Globulin Ratio (1.60-3.17) g/dL Coronavirus (PCR) Detected A (Not Detectd) 12/25/19 12/25/19 Range/Units 05:51 05:51 RBC 3.54 L (4.30-5.90) m/uL Hgb 10.5 L (13.0-17.5) gm/dL Hct 33.5 L (39.0-53.0) % Lymphocytes # 0.6 L (1.0-4.8) k/uL D-Dimer (<0.60) mg/L FEU BUN 60.0 H (9.0-27.0) mg/dL Est GFR (CKD-EPI)NonAf 54.4 L (60.0-200.0) BUN/Creatinine Ratio 50.00 H (12.00-20.00) Ratio Calcium 8.5 L (8.7-10.3) mg/dL C-Reactive Protein 1.4 H (0.0-0.8) mg/dL Total Protein 5.3 L (6.2-8.2) g/dL Albumin 3.20 L (3.80-4.90) g/dL Albumin/Globulin Ratio 1.52 L (1.60-3.17) g/dL Coronavirus (PCR) (Not Detectd) Assessment and Plan Plan: Assessment: 1 acute coronavirus Covid 19 pneumonia, initiated on Remdesivir on 12/20/2019, completed treatment on 12/24/2019. 2 acute hypoxic respiratory failure secondary to above and the patient had diffuse breath and pulmonary infiltrates and the patient is currently on 2 L of oxygen by nasal cannula 3 increased bronchospasm wheezing secondary to above, improved 4 chronic atrial fibrillation 5 hypertension 6 hypothyroidism 7 chronic stage III kidney disease Plan: Patient has remained stable overnight, he is on room air, he is being comfortably, cough has improved, no chest discomfort, he is on oral anticoagulation, he has completed his course of Remdesivir. He is awaiting transfer to [facility] for COVID 19 patients I performed a history & physical examination of the patient and discussed their management with my nurse practitioner, Sunshine Freitas. I reviewed the nurse practitioner's note and agree with the documented findings and plan of care. Lung sounds are positive for diffuse wheezes. The findings and the impression was discussed with the patient. I attest to the documentation by the nurse practitioner. Time with Patient: Less than 30
[2019-12-25 14:47] VITALS: BMI 31.1
--- NOTE | 2019-12-25 15:21 | P.DS ---
Providers Date of admission: 12/19/19 09:20 Expected date of discharge: 12/25/19 Attending physician: Karthikeyan Townsend Consults: 12/19/19 14:51 Consult Physician Routine Consulting Provider: Erik Mcgee Consult Reason/Comments: COVID + Do you want consulting provider notified?: Yes Consult Physician Routine Consulting Provider: Mayi Patel Consult Reason/Comments: COVID + Do you want consulting provider notified?: Yes 12/22/19 03:54 Consult Physician Routine Consulting Provider: Mackenzie Lai Consult Reason/Comments: afib, frequent pauses Do you want consulting provider notified?: Yes, Notify in am Primary care physician: Stated None Hospital Course: This is a 84-year-old male with complex past medical history noted below who was transferred from [place] for further evaluation of multifocal Covid 19 pneumonia. Patient presented to an outside hospital 3 days ago with worsening shortness of breath and cough. He was evaluated in the ER and was found to have a right lung pneumonia. He was admitted to the hospital and was treated with ceftriaxone and azithromycin. His overall condition remained stable. Yesterday, his Covid 19 PCR test returned positive. Patient was monitored that his symptoms started to progress and he was requiring 2 L of oxygen. Repeat chest x-ray today showed worsening multi lobar infiltrate and patient was given 125 mg of IV Solu-Medrol and he was transferred to our hospital for escalation of care and possible need of Remdesivir. Infectious disease and pulmonology was consulted. He was continued on Rocephin and azithromycin to complete a total of 5 days. He was started on Decadron by mouth to complete a total of 10 days. Chest x-ray was repeated serially which showed stable patchy infiltrates bilaterally. He was given supplemental O2 to maintain O2 saturation greater than 92%. Infectious disease recommended Remdesivir for which he received a 5 day course. With regard to his elevated blood pressure, his Norvasc and hydralazine was held and he was restarted on lisinopril at a lower dose. Otherwise, his home medications were restarted. Patient continued to show improvement throughout his hospitalization. He did have some pauses on telemetry. Cardiology was consulted and recommended observation and echocardiogram. Echocardiogram showed severe concentric LVH, EF 50-55%, moderate aortic regurgitation, moderate mitral regurgitation, mild to moderate tricuspid regurgitation. Patient was seen and examined this morning. No acute events overnight. Patient reports feeling well. He denies any chest pain or palpitations. Shortness of breath greatly improved since admission. No nausea or vomiting. No fever or chills. General: [non toxic], [no distress], [appears at stated age] Derm: [warm], [dry] Head: [atraumatic], [normocephalic], [symmetric] Eyes: [EOMI], [no lid lag], [anicteric sclera] Mouth: [no lip lesion], [mucus membranes moist] Cardiovascular: [S1S2 reg], [no murmur], [positive posterior tibial pulse bilateral], Lungs: [Decreased breath sounds bilateral], [no rhonchi, no rales] , [no accessory muscle use] Abdominal: [soft], [ nontender to palpation], [no guarding], [no appreciable organomegaly] Ext: [no gross muscle atrophy], [no edema], [no contractures] Neuro: [no focal neuro deficits] Psych: [Alert], [oriented], [appropriate affect] CVOID19 pneumonia -Continue with dexamethasone for a total of 10 days. Will complete Remdesivir on 12/23 -Clinically doubt superimposed bacterial pneumonia with pro-calcitonin of less than 2. Patient completed a five-day course of ceftriaxone and azithromycin and this has been discontinued -Albuterol -Supportive care -Pulmonary and infectious disease recommendations appreciated Acute hypoxic respiratory failure secondary to above -Supportive care Chronic atrial fibrillation rate controlled -Continue with Eliquis Hypertension -Controlled -Continue with lisinopril -Home Norvasc, and hydralazine on hold Hypothyroidism -Levothyroxine -TSH normal Chronic kidney disease stage III B Patient to be discharged to rehab today. This complex DC took about 45 minutes to complete. DVT prophylaxis: Eliquis Discussed with: patient, nursing, CM, social work Anticipated discharge: today Anticipated discharge place: [facility] A total of 45 minutes was spent on the care of this complex patient more than 50% of the time was spent in counseling and care coordination. Pertinent Studies: Echocardiogram, chest x-ray Patient Condition at Discharge: Stable Plan - Discharge Summary Discharge Rx Participant: No New Discharge Prescriptions: New Apixaban [Eliquis] 2.5 mg PO BID #0 tablet dexAMETHasone [Hexadrol] 6 mg PO DAILY 4 Days tab Melatonin 3 mg PO HS PRN tablet PRN Reason: Insomnia Albuterol Inhaler [Ventolin Hfa Inhaler] 2 puff INHALATION RT-QID puff Continue metOLazone [Zaroxolyn] 2.5 mg PO DAILY Levothyroxine Sodium 125 mcg PO DAILY@0600 Furosemide [Lasix] 40 mg PO DAILY Cetirizine HCl 10 mg PO DAILY lisinopriL 40 mg PO DAILY amLODIPine [Norvasc] 5 mg PO DAILY Simvastatin [Zocor] 20 mg PO HS Vit C/E/Zn/Coppr/Lutein/Zeaxan [Preservision Areds 2 Softgel] 1 cap PO DAILY Cholecalciferol [Vitamin D3 (25 Mcg = 1000 Iu)] 1,000 unit PO DAILY Discontinued hydrALAZINE HCL [Apresoline] 25 mg PO DAILY Potassium Chloride 10 meq PO DAILY Discharge Medication List Cetirizine HCl 10 mg PO DAILY 12/19/19 [History] Cholecalciferol [Vitamin D3 (25 Mcg = 1000 Iu)] 1,000 unit PO DAILY 12/19/19 [History] Furosemide [Lasix] 40 mg PO DAILY 12/19/19 [History] Levothyroxine Sodium 125 mcg PO DAILY@0600 12/19/19 [History] Simvastatin [Zocor] 20 mg PO HS 12/19/19 [History] Vit C/E/Zn/Coppr/Lutein/Zeaxan [Preservision Areds 2 Softgel] 1 cap PO DAILY 12/19/19 [History] amLODIPine [Norvasc] 5 mg PO DAILY 12/19/19 [History] lisinopriL 40 mg PO DAILY 12/19/19 [History] metOLazone [Zaroxolyn] 2.5 mg PO DAILY 12/19/19 [History] Albuterol Inhaler [Ventolin Hfa Inhaler] 2 puff INHALATION RT-QID puff 12/25/19 [Rx] Apixaban [Eliquis] 2.5 mg PO BID #0 tablet 12/25/19 [Rx] Melatonin 3 mg PO HS PRN tablet 12/25/19 [Rx] dexAMETHasone [Hexadrol] 6 mg PO DAILY 4 Days tab 12/25/19 [Rx] Activity/Diet/Wound Care/Special Instructions: Take Eliquis for 30 days for DVT prophylaxis (COVID 19). 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 Take dexamethasone for another 4 days to complete a total of 10 days. Albuterol inhaler as needed for shortness of breath and wheezing. Follow-up with PCP within 3 days of discharge. Take all medications as advised. Come back to the ED or call 911 for worsening chest pain, shortness of breath or palpitations Discharge Disposition: TRANSFER TO SNF/ECF
--- NOTE | 2019-12-25 17:26 | PN ---
PROGRESS NOTE DATE OF SERVICE: 12/25/2019 REASON FOR FOLLOWUP: COVID-19 infection. INTERVAL HISTORY: The patient is currently afebrile. The patient is breathing comfortably. The patient denies having any chest pain or shortness of breath. Minimal cough. No abdominal pain or diarrhea. Currently on room air. PHYSICAL EXAMINATION: Blood pressure 172/86, pulse of 57, temperature 98.4. He is 97% on room air. General description is an elderly male lying in bed in no distress. RESPIRATORY SYSTEM: Unlabored breathing. No wheezes or crackles. EXTREMITIES: No edema of feet. LABS: Hemoglobin is 10.4, white count 4.4. D-dimer was 1.27 yesterday. Inflammatory markers have improved. DIAGNOSTIC IMPRESSION AND PLAN: Patient with acute COVID-19 infection. The patient seems to have shown overall clinical improvement. He responded well to the remdesivir, dexamethasone, Lovenox. To finish therapy with a short course of dexamethasone along with respiratory support. MMODL / IJN: [id number] /
[2019-12-25 17:49] VITALS: BP 128/60; PULSE 55; TEMP 98.2
== END 2019-12-25 18:50 | DRG 177 ==
LOC: 4SSUR 09:20
PROVIDERS: ADMIT Internal Medicine; ATTEND Internal Medicine
DX: U07.1 COVID-19 (principal); J96.01 Acute respiratory failure with hypoxia; J15.9 Unspecified bacterial pneumonia; J12.89 Other viral pneumonia; I48.0 Paroxysmal atrial fibrillation; I12.9 Hypertensive chronic kidney disease with stage 1 through stage 4 chronic kidney disease, or unspecified chronic kidney disease; E03.9 Hypothyroidism, unspecified; N18.30 Chronic kidney disease, stage 3 unspecified; Z66 Do not resuscitate; I08.0 Rheumatic disorders of both mitral and aortic valves; D72.810 Lymphocytopenia; J98.01 Acute bronchospasm; R53.81 Other malaise; Z79.890 Hormone replacement therapy; Z79.899 Other long term (current) drug therapy; Z87.891 Personal history of nicotine dependence; Z88.8 Allergy status to other drugs, medicaments and biological substances
CPT/HCPCS: 71045; 80048; 80053; 82728; 83615; 83735; 84145; 84443; 85025; 85379; 86140; 87635; 93005; 93306; 94640